=== PATIENT | female | born 1965 | race Caucasian/White ===

== ENCOUNTER 2019-12-08 09:39 | Outpatient (CLI) | payer OTHER, SELFPAY ==
--- NOTE | ~2019-12-08 | XR_ITS ---
XR abdomen/kub 1V 12/08/2019 10:00 Indication: Renal stone Procedure: KUB Comparison: 07/31/2019 Findings: There are multiple bilateral renal stones. There are stones in the right renal pelvis. No d efinite ureteral stones are identified. There are pelvic phleboliths. There are tubal ligation clips. Bowel pattern is nonobstructive. Impression: 1: Nonobstructing bilateral nephrolithiasis. Reviewed, dictated and finalized at location A. Impression: 1: Nonobstructing bilateral nephrolithiasis.
== END 2019-12-08 09:40 ==
PROVIDERS: PCP Internal Medicine; Visit Provider Urology
DX: N20.0 Calculus of kidney (principal)
CPT/HCPCS: 74018

== ENCOUNTER 2020-03-11 13:03 | Outpatient (CLI) | payer OTHER, SELFPAY ==
--- NOTE | ~2020-03-11 | XR_ITS ---
XR abdomen/kub 1V 03/11/2020 13:32 Indication: Renal stones Procedure: KUB Comparison: Comparison to multiple prior studies sequentially, with oldest reviewed study dated 11/23. Findings: There are multiple large bilateral renal stones. Bowel gas pattern is nonobstructive. There are surgical clips in the pelvis. There are pelvic phleboliths. Nonobstructive bowel gas pattern. Lo wer lumbar spondylosis. Impression: 1: Large bilateral renal stones. Reviewed, dictated and finalized at location B. Impression: 1: Large bilateral renal stones.
== END 2020-03-11 13:04 ==
PROVIDERS: Visit Provider Urology
DX: N20.0 Calculus of kidney (principal)
CPT/HCPCS: 74018

== ENCOUNTER 2020-06-17 10:41 | Outpatient (CLI) | payer OTHER, SELFPAY ==
--- NOTE | ~2020-06-17 | XR_ITS ---
XR abdomen/kub 1V 06/17/2020 11:09 INDICATION: Renal stones TECHNIQUE: KUB COMPARISON: Comparison to multiple prior studies sequentially, with oldest reviewed study dated 04/14. FINDINGS: Bowel gas pattern is normal. There is no evidence of free air, mass, organomegaly, ascites or obstruction. There are multiple stable large bilateral renal stones, largest lower pole of the le ft kidney measuring up to 3.1 cm craniocaudal. There are pelvic phleboliths. There are surgical clips in the pelvis. The bones appear intact. IMPRESSION: 1.: Stable bilateral nephrolithiasis. Reviewed, dictated and finalized at location B.
== END 2020-06-17 10:42 ==
PROVIDERS: PCP Internal Medicine; Visit Provider Urology
DX: N20.0 Calculus of kidney (principal)
CPT/HCPCS: 74018

== ENCOUNTER 2020-10-19 10:36 | Outpatient (CLI) | payer OTHER, SELFPAY ==
--- NOTE | ~2020-10-19 | XR_ITS ---
EXAMINATION: XR abdomen/kub 1V EXAM DATE: 10/19/2020 11:01 INDICATION: Calculus of kidney . TECHNIQUE: Frontal projection of the upper abdomen, frontal projection lower abdomen/pelvis for inter pretation. Comparison is made to prior examination from 06/17/2020. FINDINGS: Large amount of calcification in right calyces and renal pelvis. Large casting calcificati on in the left inferior moiety. Calcifications in the pelvis are believed to be phleboliths. Nonobstr uctive bowel gas pattern. There are bony degenerative changes. IMPRESSION: Large bilateral nephrolithiasis. 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
== END 2020-10-19 10:37 ==
PROVIDERS: Visit Provider Urology
DX: N20.0 Calculus of kidney (principal)
CPT/HCPCS: 74018

== ENCOUNTER 2021-03-06 17:39 | Outpatient (CLI) | payer OTHER, SELFPAY ==
--- NOTE | ~2021-03-06 | XR_ITS ---
EXAMINATION: XR abdomen/kub 1V DATE: 03/06/2021 18:27 INDICATION: Calculus of kidney. TECHNIQUE: A supine view of the abdomen on 2 radiographs was obtained. COMPARISON: CT abdomen and pelvis 07/04/2015, abdomen radiographs 10/19/2020 FINDINGS: There are no dilated loops of bowel. There are bilateral tubal ligation clips. There are ph leboliths in the pelvis. There are greater than 20 stones in right kidney and right renal pelvis tyrel uring up to 16 mm. There is a 3.8 cm stone in left kidney. IMPRESSION: 1. Stones in the kidneys and right renal pelvis. Reviewed, dictated and finalized at location A.
== END 2021-03-06 17:40 ==
PROVIDERS: Visit Provider Urology
DX: N20.0 Calculus of kidney (principal)
CPT/HCPCS: 74018

== ENCOUNTER 2021-04-01 10:13 | Outpatient (CLI) | payer OTHER, SELFPAY ==
--- NOTE | ~2021-04-01 | CT_ITS ---
EXAMINATION: CT abdomen pelvis wo con DATE: 04/01/2021 10:41 INDICATION: Renal stone TECHNIQUE: Computed tomography (CT) of the abdomen and pelvis was performed without intravenous contr ast. The dose-length product was 1369.94 mGy-cm. Automated exposure control and iterative reconstruct ion technique were employed. COMPARISON: CT dated 07/04/2015. FINDINGS: Lung bases are unremarkable. Heart size normal. No significant pleural or pericardial effus ion. There are in numerable bilateral renal stones. There are multiple stones in the right renal pelv is near the UPJ. No significant hydronephrosis. The liver, spleen, pancreas, are unremarkable. There are small nodules in both adrenal glands measuri ng up to 11 mm in the left adrenal gland, likely benign adenomas. Gallbladder is present. Nonobstruct endy bowel gas pattern. Colonic diverticulosis without evidence for diverticulitis. Mild lumbar spondy losis. IMPRESSION: 1. Nonobstructing bilateral nephrolithiasis. Multiple stones identified in the right renal collecting system without significant hydronephrosis. Reviewed, dictated and finalized at location A.
== END 2021-04-01 10:14 | disposition home or self-care (01) ==
LOC: ANHIMG 10:17
PROVIDERS: Visit Provider Urology
DX: N20.0 Calculus of kidney (principal)
CPT/HCPCS: 74176

== ENCOUNTER 2021-09-07 15:25 | Outpatient (CLI) | payer OTHER, SELFPAY ==
--- NOTE | ~2021-09-07 | CT_ITS ---
EXAMINATION: CT abdomen pelvis wo con DATE: 09/07/2021 15:43 INDICATION: Calculus of kidney. TECHNIQUE: Computed tomography (CT) of the abdomen and pelvis was performed without intravenous contr ast. Automated exposure control and iterative reconstruction technique were employed. The dose-length product was 1217.86 mGy-cm. COMPARISON: CT abdomen and pelvis 04/01/2021 FINDINGS: The visualized portions of the lung bases are clear without pneumonia or pleural effusion. The heart size is normal. There are coronary artery calcifications. No pericardial effusion. There is diffuse hepatic steatosis. The gallbladder is contracted. The spleen, pancreas, and right adrenal gl and are normal. There is a 12 mm mass in left adrenal gland measuring low-attenuation, consistent wit h an adenoma. There are 5 stones in right kidney measuring up to 17 mm. There are 3 mm and 4 mm stone s in left kidney. Pelvic floor relaxation is noted. There are bilateral tubal ligation clips. There i s diverticulosis of the colon without evidence of diverticulitis. There are no dilated loops of bowel . The appendix is normal. There are no pathologically enlarged lymph nodes. There is no free intraper itoneal fluid. There is moderate thoracolumbar spondylosis. IMPRESSION: 1. Bilateral nonobstructing kidney stones. Reviewed, dictated and finalized at location B. 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
== END 2021-09-07 15:26 ==
PROVIDERS: Visit Provider Urology
DX: N20.0 Calculus of kidney (principal)
CPT/HCPCS: 74176

== ENCOUNTER 2022-08-01 10:43 | Outpatient (CLI) | payer OTHER, SELFPAY ==
--- NOTE | ~2022-08-01 | US_ITS ---
EXAMINATION: US renal BI DATE: 08/01/2022 11:00 INDICATION: Calculus of kidney TECHNIQUE: Multiple grayscale and Doppler ultrasound images of the kidneys were obtained. COMPARISON: 09/07/2021 FINDINGS: The right kidney measures 11.9 x 6.3 x 7.1 cm. The left kidney measures 14.6 x 6.4 x 7.5 cm. The kidn eys demonstrate normal parenchymal echogenicity. Multiple echogenic foci in the right lower pole tyrel uring 1.7 and 2.1 cm respectively. Echogenic focus in the left inferior renal pole measuring 1.5 cm. Multiple additional smaller bilateral renal calculi seen in the prior CT are not visualized sonograph ically. There is no hydronephrosis. The bladder is incompletely filled. IMPRESSION: Bilateral nephrolithiasis. Reviewed, dictated and finalized at location K. CE LIAISON IMPRESSION: Bilateral nephrolithiasis.
--- NOTE | ~2022-08-01 | XR_ITS ---
EXAM: XR abdomen/kub 1V DATE: 08/01/2022 11:06 HISTORY: Calculus of kidney follow up . COMPARISON: 03/06/2021, renal ultrasound 08/01/2022, CT abdomen and pelvis 09/07/2021. FINDINGS: Clear lung bases. Enlarged liver. Normal bowel gas pattern. No organomegaly. Multiple righ t lower pole calcifications regional to 1.6 cm. Pelvic phleboliths. Tubal ligation clips. Degenerativ e changes in the spine and hips. IMPRESSION: Hepatomegaly. Right nephrolithiasis. Known left kidney stones are poorly visualized radio graphically. Reviewed, dictated and finalized at location K. RIOR WIRER IMPRESSION: Hepatomegaly. Right nephrolithiasis. Known left kidney stones are p oorly visualized radiographically.
== END 2022-08-01 10:44 ==
PROVIDERS: PCP Hospitalist; Visit Provider Urology
DX: N20.0 Calculus of kidney (principal); R16.0 Hepatomegaly, not elsewhere classified
CPT/HCPCS: 74018; 76775

== ENCOUNTER 2022-11-08 15:20 | Emergency (ER) | payer OTHER, SELFPAY ==
--- NOTE | 2022-11-08 15:25 | ED.URI ---
HPI - URI/Sore Throat General Chief Complaint: Upper Respiratory Infection Stated Complaint: DIZZY/NAUSA/CHILLS/BODY ACHES Time Seen by Provider: 11/08/22 15:31 Source: patient and RN notes reviewed Mode of arrival: ambulatory Limitations: no limitations History of Present Illness HPI Narrative: 57-year-old female presents with concern for body aches, headache, nausea without vomiting, dizziness started yesterday. She reports exposure to COVID at work and her [id number] has influenza. She reports she is not drinking as much as she should because of nausea. She reports taking Tylenol. She denies any severe headache, weakness in any extremity. MD elicited complaint: other (Body aches, headache) Related Data Home Medications Medication Instructions Recorded Confirmed allopurinol 300 mg tablet mg 11/08/22 amlodipine 10 mg tablet mg 11/08/22 chlorthalidone 25 mg tablet mg 11/08/22 glipizide 5 mg tablet mg 11/08/22 labetalol 200 mg tablet mg 11/08/22 metformin 500 mg tablet,extended mg PO 11/08/22 release 24 hr valsartan 320 mg tablet mg 11/08/22 Allergies Allergy/AdvReac Type Severity Reaction Status Date / Time tramadol AdvReac Intermediate Other Verified 11/08/22 15:27 Contrast Media Allergy Severe HIVES Uncoded 11/08/22 15:27 Review of Systems Review of Systems: CONSTITUTIONAL: Reports malaise, chills low-grade fever. EYES: Denies visual changes, redness, or discharge. ENT: Denies rhinorrhea, congestion, sinus pain, otalgia and sore throat. CARDIOVASCULAR: Denies chest pain, palpitations, or edema. RESPIRATORY: Denies cough. Denies dyspnea. GASTROINTESTINAL: Denies abdominal pain,vomiting, diarrhea. Reports nausea SKIN: Denies rash or itching. MUSCULOSKELETAL: Reports myalgia. NEUROLOGIC: Reports headache and dizziness. All systems reviewed & are unremarkable except as noted in HPI and below PMFSH Comments At time of signature, agree with nursing past medical, surgical, social and family history. There is no relevant family history pertinent to the presenting complaint Exam Narrative: GENERAL: Nontoxic-appearing and in no acute distress. HEAD: Normocephalic EYES: PERRLA, conjunctivae clear ENT: Nares clear, no discharge. Mucous membranes moist. TM pearly crawford with dull light reflex bilaterally; no tragal tenderness. Oropharynx not erythematous without lesions. Tonsils not enlarged and without exudate, no drooling, no hoarseness, no trismus, uvula midline. NECK: Supple. No lymphadenopathy CHEST: Clear to auscultation, breath sounds equal. No wheezing, rhonchi, rales, or stridor. No respiratory distress, speaks in full sentences. HEART: Regular rate and rhythm. No murmur heard. SKIN: Warm, dry, no rash. NEURO: Alert and oriented x3. No focal deficits, cranial nerves 2-12 grossly intact PSYCH: Normal mood and affect Course Course Emergency Course: Patient is aware of diagnosis, understands and agrees to treatment plan. Anticipatory guidance given. Patient agrees to follow-up as directed and is aware of reasons to seek care at the emergency department. Portions of this record may have been created with voice recognition software Level of Care: Express Care Visit Vital Signs Vital signs: Reviewed. MDM - URI/Sore Throat MDM Narrative Medical decision making narrative: Differential diagnosis considered: Horne virus, strep pharyngitis, allergic rhinitis, upper respiratory tract infection, sinusitis, rhinosinusitis, nasopharyngitis. viral pharyngitis, otitis media, otitis externa, pneumonia, bronchitis, viral cough syndrome, viral syndrome, and influenza. Exam findings show no acute concerns or changes; patient is non-toxic appearing and is in no distress. Patient is appropriate for outpatient treatment and follow-up. Lab Data Attestation: I reviewed the patient's lab results. Critical Care Time Critical Care Time Critical Care Time: No Discharge Plan Discharge Clinical Impression: In
[2022-11-08 15:29] VITALS: BP 133/101; PULSE 95; RESP 18; TEMP 37.3; O2SAT 100
== END 2022-11-08 16:09 | disposition home or self-care (01) ==
PROVIDERS: Emergency Provider Nurse Practitioner
DX: J11.1 Influenza due to unidentified influenza virus with other respiratory manifestations (principal); Z20.822 Contact with and (suspected) exposure to COVID-19; I10 Essential (primary) hypertension; E11.9 Type 2 diabetes mellitus without complications
CPT/HCPCS: 87426; 87804; 99213; C9803; G0463

== ENCOUNTER 2022-11-09 13:45 | Outpatient (CLI) | payer OTHER, SELFPAY ==
--- NOTE | ~2022-11-09 | XR_ITS ---
XR abdomen/kub 1V 11/09/2022 14:24 Indication: Renal stones. Procedure: KUB Comparison: 08/01/2022 Findings: There are stones clustered in the lower pole of the right kidney. There are pelvic phleboli ths. There are clips in the pelvis, consistent with previous tubal ligation. Bowel pattern is nonobst ructive. There is lumbar spondylosis. Impression: 1: Right nephrolithiasis. Reviewed, dictated and finalized at location A. Impression: 1: Right nephrolithiasis.
== END 2022-11-09 13:46 ==
PROVIDERS: PCP Family Medicine; Visit Provider Urology
DX: N20.0 Calculus of kidney (principal)
CPT/HCPCS: 74018

== ENCOUNTER 2024-12-11 14:29 | Outpatient (CLI) | payer OTHER, SELFPAY ==
--- NOTE | ~2024-12-11 | CT_ITS ---
Non-contrast CT scan of the Abdomen and Pelvis Clinical indication: Renal stone Technique: 2.5 mm axial scans were obtained through the abdomen and pelvis without intravenous or or al contrast. Dose reduction technique was used on this scan by utilizing automated exposure control a nd iterative reconstruction technique. The dose-length product (DLP) was 1145.30 mGy-cm. COMPARISON: 09/07/2021 Findings: Images through the lung bases reveal no abnormalities. Nonobstructing right renal stones are present, largest measuring 14 mm. Small nonobstructing renal st ones are present, largest measuring 6 mm. No ureteral stone or hydronephrosis on either side. The liver, spleen, pancreas, gallbladder, and adrenals appear normal. There are atherosclerotic calci fications of the aorta. . There is no evidence of bowel obstruction. Images through the pelvis were performed. There is no evidence of ascites or lymphadenopathy. Urinary bladder unremarkable. No pelvic mass seen. No ascites. Impression: Bilateral nonobstructing renal stones, as detailed above. No ureteral stone or hydronephrosis. Reviewed, dictated and finalized at [facility]. Impression: Bilateral nonobstructing renal stones, as detailed above. No ureteral stone or hydronephrosis.
== END 2024-12-11 14:30 | disposition home or self-care (01) ==
PROVIDERS: PCP Hospitalist; Visit Provider Urology
DX: N20.0 Calculus of kidney (principal)
CPT/HCPCS: 74176

== ENCOUNTER 2025-05-25 12:53 | Outpatient (CLI) | payer OTHER, SELFPAY ==
--- NOTE | ~2025-05-25 | XR_ITS ---
Abdominal radiograph(s) INDICATION: Renal stones COMPARISON: CT 12/11/2024 Abdominal x-ray 11/09/2022 TECHNIQUE: 2 views AP abdomen FINDINGS: Bilateral renal stones, right side up to 9 mm, left side up to 6 mm. No ureteral stones noted. Scattered colonic stool. Small bowel loops not well seen. Hepatomegaly. No abnormal abdominal calcifications. No acute bony abnormality. IMPRESSION: 1. Bilateral nephrolithiasis. Reviewed, dictated and finalized at location R.
--- OUTSIDE RECORDS SUMMARY | 2025-05-25 13:03 | XMS_ITS | Clinical Summary ---
Author Organization [facility] Address [address] [place] [address] Care Team Providers Care Diamond Sawer Name Role Phone Dalton Broderick MD Primary Care Provider [phone] Allergies Active Allergy Reactions Criticality Noted Date Comments Iodine Swelling 10/26/2021 IV Contrast dye. Was able to tolerate with benadryl and steroids the last time Medications metFORMIN 500 MG tablet Take 500 mg by mouth 2 (two) times daily with meals. Active glipiZIDE 5 MG tablet Take 5 mg by mouth every morning before breakfast. Active Albuterol Sulfate (PROAIR HFA IN) Inhale 2 puffs into the lungs as needed. Active amLODIPine 10 MG tablet Take 10 mg by mouth daily. 1 Active Blood Glucose Monitoring Suppl (GLUCOCOM BLOOD GLUCOSE MONITOR) Device Use to check blood glucose 1 time daily. Dx: E11.69 Non Insulin Dependent 1 Active Glucose Blood ([employer] BLOOD GLUCOSE TEST) test strip Use to check blood glucose 1 time daily. Dx: E11.69 Non Insulin Dependent 1 Active Lancets 30G Misc Use to check blood glucose 1 time daily. 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 Active allopurinol 300 MG tablet Take 300 mg by mouth daily. 1 Active Active Problems Problem Noted Date Diagnosed Date Right kidney stone 11/02/2021 Family History Medical History Relation Comments Heart Father had pacemaker an d defibrillator Hypertension Father Stroke Father Heart Mother Hypertension Mother tia Mother Heart Sister 1 pacemaker and de fibrillator mini strokes Sister 1 Heart Sister 2 Relation Status Comments Father Mother Alive Sister 1 Alive Sister 2 Alive Social History Tobacco Use Types Packs/Day Years Used Date Smoking Tobacco: Former Cigarettes Q uit: 10/26/2014 Smokeless Tobacco: Never Alcohol Use Standard Drinks/Week Comments Not Currently 0 (1 standard drink = 0.6 oz pur e alcohol) twice a year Comments No Sex and Gender Information Value Date Recorded Sex Assigned at Not on file Legal Sex 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 Gender Identity Not on file Sexual Orientation Not on file Last Filed Vital Signs Vital Sign Reading Time Taken Comments Blood Pressure 124/73 11/02/2021 3:45 PM SALES ASSOCIATE KEY HOLDER Pulse 62 11/02/2021 3:45 PM SALES 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 KEY HOLDER Temperature 36.9 C (98.4 F) 11/02/2021 3:45 PM SALES ASSOCIATE KEY HOLDER Respiratory Rate 16 11/02/2021 3:45 PM SALES 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 KEY HOLDER Oxygen Saturation 96% 11/02/2021 3:45 PM SALES ASSOCIATE KEY HOLDER Inhaled Oxygen Concentration - - Weight 129.5 kg (285 lb 7.9 oz) 022 11:10 AM SALES ASSOCIATE KEY HOLDER Height 172.7 cm (5' 8) 10/26/2021 9:32 AM SALES ASSOCIATE KEY HOLDER Body Mass Index 43.41 10/26/2021 9:32 AM SALES ASSOCIATE KEY HOLDER Plan of Treatment Health Maintenance Due Date Last Done Comments Cervical Cancer Screening Pa p Smear (Age 30 to 64) Every 3 Years 1963 Colorectal Cancer Screening Colonoscopy (10 Years) 1963 Annual Physical 1966 Hepatitis C 1981 Cervical Cancer Screening Pa p with HPV Testing (Age 30 to 64) Every 5 Years 1993 Cervical Cancer Screening wi th HPV 1993 Mammogram Screening 2003 Pneumococcal Vaccine: 50+ Years (1 of 1 - PCV) 2013 Zoster Vaccines (1 of 2) 2013 DTaP, Tdap and Td Vaccines ( 2 - Td or Tdap) 04/22/2022 04/22/2012 COVID-19 Vaccine (3 - 2024-2 6 season) 2025 10/26/2020, 09/27/2020 RSV Immunization or 60+ Years (1 - 1-dose 75+ series) 2038 Meningococcal B Vaccine Aged Out No l onger eligible based on patient's age to complete this topic Meningococcal Vaccine Aged Out No humza jesse eligible based on patient's age to complete this topic RSV Immunizations Under 20 Months Aged Out No longer eligible b ased on patient's age to complete this topic Medical Devices Implanted Type Area Ip Litigation Associate Device Identifier Shelf Expiration Date Model / Serial / Lot Stent Ureteral Anchor Sci Contour 6fr X 24cm - [id number] Implanted:Qty: 1 on 11/02/2021 by Thony Ochoa MD at [facility] [place] Stent Right: Ureter [employer] 08/15/2024 [id number] / / [id number] Insurance CIG Care Teams Diamond Sawer Relationship Specialty Start Date End Date Dalton Broderick MD [address] [place] [address] PCP - General FAMILY PRACTICE 11/02/21
--- OUTSIDE RECORDS SUMMARY | 2025-05-25 13:03 | XMS_ITS | Clinical Summary ---
Author Organization [facility] [place] [address] Address [address] [place] [address] Care Team Providers Care Yarn Examiner Skeins Name Role Phone Dalton Pathak MD Primary Care Provider [phone] Thony Ochoa MD Unavailable [phone] Allergies Active Allergy Reactions Criticality Noted Date Comments Iodinated Contrast Media Hives Medium 02/17/2021 Iodine Swelling Medium 10/26/2021 IV Contrast dye. Was able to tolerate with benadryl and steroids the last time Spironolactone Nausea only Low 02/03/2025 Lqkoylm-Uqn-Lsq Reductase Inhibitors Other (See comments) Low 10/11/2023 GI upset w/ simvastatin, atorvastatin, and rosuvastatin Tramadol Hallucinations Medium 02/25/2025 Hydrocodone-Acetaminop hen Hallucinations Medium 06/10/2024 itching Medications allopurinoL (ZYLOPRIM) 300 mg tablet Take 1 tablet (300 mg total) by mouth daily 01/17/20 21 Active blood-glucose meter (OneTouch Verio IQ Meter) miscIndications: Type 2 diabetes mellitus with diabetic nephropathy, without long-term current use of insulin (HCC) Use to check blood glucose 1 time daily. Dx: E11.69 Non Insulin Dependent 1 each 03/05/20 23 Active lancets 30 gauge miscIndications: Type 2 diabetes mellitus with diabetic nephropathy, without long-term current use of insulin (HCC) Use to check blood glucose 1 time daily. Dx: E11.69 Non Insulin Dependent 100 each 3 03/05/20 23 Active blood-glucose sensor deviceIndication s:Type 2 diabetes mellitus with diabetic nephropathy, without long-term current use of insulin ([facility]) 1 Application every 14 (fourteen) days 9 each 3 03/06/20 23 Active metFORMIN XR (GLUCOPHAGE XR) 500 mg 24 hr tabletIndication s:Type 2 diabetes mellitus with diabetic nephropathy, without long-term current use of insulin ([facility]) Take 2 tablets (1,000 mg total) by mouth 2 (two) times a day with meals Take 2 tablets with breakfast; take additional dose with evening meal if glucose levels elevated 360 tablet 4 11/12/19 25 026 Active lancets misc 1 each by other route as directed 100 each 3 11/12/19 25 Active ergocalciferol (VITAMIN D) 50,000 unit capsuleIndicatio ns:Vitamin D deficiency Take 1 capsule (50,000 Units total) by mouth once a week 12 capsule 4 11/21/19 25 026 Active glipiZIDE (GLUCOTROL) 5 mg tabletIndication s:Type 2 diabetes mellitus with diabetic nephropathy, without long-term current use of insulin ([facility]) Take 1 tablet (5 mg total) by mouth 2 (two) times a day before breakfast and lunch 02/19/20 25 Active Narcan 4 mg/actuation spray,non-aeroso l Administer 1 spray into affected nostril(s) as needed 0 02/26/20 25 Active cyclobenzaprine (FLEXERIL) 5 mg tablet Take 1 tablet (5 mg total) by mouth 3 (three) times a day as needed for muscle spasms 30 tablet 03/03/20 25 Active oxyCODONE (ROXICODONE) 5 mg immediate release tablet Take by mouth every 6 (six) hours as needed for pain 03/02/20 25 Active blood glucose diagnostic (glucose blood) stripIndications :Type 2 diabetes mellitus with diabetic nephropathy, without long-term current use of insulin ([facility]) One-Touch test strips 100 each 11 04/06/20 25 026 Active amLODIPine (NORVASC) 10 mg tabletIndication s:Essential hypertension Take 1 tablet (10 mg total) by mouth daily 05/03/20 25 Active labetaloL (NORMODYNE,TRAND ATE) 200 mg tabletIndication s:Essential hypertension Take 1 tablet (200 mg total) by mouth 2 (two) times a day 05/03/20 25 026 Active valsartan (DIOVAN) 160 mg tabletIndication s:Essential hypertension Take 1 tablet (160 mg total) by mouth daily 05/03/20 25 026 Active amLODIPine (NORVASC) 10 mg tabletIndication s:Morbid obesity with BMI of 40.0-44.9, adult (HCC) Take 1 tablet (10 mg total) by mouth daily 90 tablet 6 10/29/19 25 025 Discontinu ed(Reorder ) labetaloL (NORMODYNE,TRAND ATE) 200 mg tabletIndication s:Morbid obesity with BMI of 40.0-44.9, adult (HCC) Take 1 tablet (200 mg total) by mouth 2 (two) times a day 180 tablet 6 10/29/19 25 025 Discontinu ed(Reorder ) valsartan (DIOVAN) 160 mg tabletIndication s:Morbid obesity with BMI of 40.0-44.9, adult (HCC) Take 1 tablet (160 mg total) by mouth daily 90 tablet 6 10/29/19 25 025 Discontinu ed(Reorder ) clindamycin (CLEOCIN) 300 mg capsuleIndicatio ns:Dental infection Take 1 capsule (300 mg total) by mouth 4 (four) times a day for 10 days 40 capsule 05/03/20 25 025 fluconazole (DIFLUCAN) 150 mg tablet Take 1 tablet (150 mg total) by mouth once for 1 dose Take one tab now. Repeat in 7 days if symptoms persist. 2 tablet 05/03/20 25 025 Active Problems Problem Noted Date Diagnosed Date Anxiety 02/03/2025 Assessment & Plan (02/03/2025 7:29 PM CDT): Meningioma 11/11/2024 Assessment & Plan (02/18/2025 2:38 PM CDT): Continues monitoring with Neurosurgery. Assessment & Plan (02/03/2025 7:29 PM CDT): Assessment & Plan (11/11/2024 12:31 PM CDT): Urgent referral to neurosurgery. Discussed typically benign nature of meningiomas. When symptomatic may require intervention. She is agreeable to follow up with neurosurgeon. We appreciate their expertise. Statin intolerance 10/11/2023 Nephrolithiasis 05/16/2021 Assessment & Plan (02/18/2025 2:38 PM CDT): Following with urology. Lithotripsy scheduled. Diabetic polyneuropathy asso ciated with type 2 diabetes mellitus 02/17/2021 Assessment & Plan (11/11/2024 12:31 PM CDT): Discussed the importance of getting blood sugar under control. Recent increase in glipizide and metformin. Will have short-term follow-up in 3 months. May consider additional agent. She is in agreement with plan states understanding. Assessment & Plan (05/03/2025 11:49 AM CDT): >>ASSESSMENT AND PLAN FOR DIABETIC POLYNEUROPATHY ASSOCIATED WITH TYPE 2 DIABETES MELLITUS (HCC) WRITTEN ON 02/17/2021 3:03 PM BY DALTON PATHAK MD Patient reports occasional numbness and tingling in bilateral feet, decreased sensation during that exam Continue to monitor, symptoms do not significantly bother patient and no need to start medication at this time Will continue with tight blood sugar control in order to reduce risk of progression >>ASSESSMENT AND PLAN FOR DIABETIC NEPHROPATHY ASSOCIATED WITH TYPE 2 DIABETES MELLITUS (HCC) WRITTEN ON 02/17/2021 3:02 PM BY DALTON PATHAK MD Positive microalbumin urine today, patient also known to have kidney stones Will recheck a future date, and we will check CMP today to determine GFR Hyperlipidemia associated with type 2 diabetes jose temple 05/13/2019 Assessment & Plan (05/03/2025 12:34 PM CDT): Chronic, not well controlled Does not tolerate statins Follows with cardiology Assessment & Plan (05/01/2024 11:31 AM CDT): Not well controlled Does not tolerate statins Cardiology working to get Zetia approved Has not started fenofibrate; discussed need to start Assessment & Plan (04/28/2021 3:58 PM CDT): Stable, no current anti cholesterol medicine Will continue to monitor likely need to start statin therapy Class 2 severe obesity due t o excess calories with serious comorbidity and body mass index (BMI) of 38.0 to 38.9 in adult 02/07/2018 Assessment & Plan (05/03/2025 12:35 PM CDT): BMI 38.47 Has been working to lose weight Goal is 250 pounds; currently at 253 Assessment & Plan (02/03/2025 7:29 PM CDT): BMI 40.61. Discussed healthy diet, routine exercise and encouraged further weight loss. Patient reports a weight loss of 40 lb. We discussed that it could be related to uncontrolled diabetes. Assessment & Plan (05/01/2024 11:33 AM CDT): Not well controlled Has lost 12 pounds due to stress Likes to eat carbs Encouraged to monitor portion control and limit carb intake Assessment & Plan (04/28/2021 3:58 PM CDT): Not well controlled, continue to encourage portion control and attempts to find time to exercise 3-5 times per week Assessment & Plan (02/17/2021 3:00 PM CDT): Stable, improving Patient has been working on weight loss, has lost approximately 16 lb over past month Encouraged patient to continue with appropriate dietary portion control new line limit carbohydrate intake for controlling blood sugars Will continue to follow patient, referral to diabetic Education and Nutrition Services for further assistance with weight loss goals Type 2 diabetes mellitus wit h diabetic nephropathy, without long-term current use of insulin 08/12/2017 Assessment & Plan (05/03/2025 12:33 PM CDT): Most recent A1c 8.1 Continue Metformin 1000 mg BID and Glipizide 10 mg BID Non-adherence due to dietary challenges, stress-related eating, and memory issues from meningioma. Blood sugar 218-345 mg/dL. 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 Non-adherence due to dietary challenges, stress-related eating, and memory issues from meningioma. Blood sugar 218-345 mg/dL. Declined insulin therapy. - Increase glipizide to 5 mg twice daily with meals. - Encourage dietary modifications, reduce pasta and soda, consider alternative sweeteners. - Discuss importance of taking glipizide with food to prevent hypoglycemia. - Reassess A1c in three months. Assessment & Plan (02/03/2025 2:48 PM CDT): Assessment & Plan (11/11/2024 12:32 PM CDT): A1c 10.2%. Above goal. Recent uptitration and glipizide and metformin. Encouraged compliance. Encouraged monitoring blood glucose at home. Will send in glucometer and test strips. Short-term follow-up in 3 months. Sooner for any concerns. Assessment & Plan (05/01/2024 11:30 AM CDT): Not well controlled A1c 10.7 Glipizide 10 mg BID, Metformin 1000 mg daily Has not started Mounjaro-phone number given to call and get set up with mail order program Assessment & Plan (03/05/2023 12:49 PM CDT): Patient's A1c on 02/06 was 11%, with is up from 9.2% in January of 2022. Patient would benefit from Mirametrix glucose monitoring system as her blood sugars have been uncontrolled Continue Glipizide 5 mg daily and Metformin 1000 mg daily Start Mounjaro 2.5 mg SubQ once weekly Follow up in 1 month Assessment & Plan (04/28/2021 4:00 PM CDT): Improving, last A1c was 9.2, patient has been working on diet and decreasing carbohydrates; today A1c has come down to 7.6 Continue metformin 1000 mg b.i.d., glipizide 5 mg daily; today will start semaglutide 3 mg daily Assessment & Plan (02/17/2021 2:59 PM CDT): Not well controlled, improving Last A1c 10.3, today is 9.2 Patient has continued to have good control of blood sugar 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 Patient referred to diabetic education to ensure patient continues with adequate diet Patient to start glipizide 5 mg daily to help with blood sugar control through the day Patient given signs and symptoms of hypoglycemia, and need to ensure carbohydrate intake while taking glipizide Clinic and lipid today and noted elevated total and LDL cholesterol; patient given dietary and activity modifications to help improve cholesterol levels; patient to talk with working manager regarding starting statin therapy Essential hypertension 11/16/2013 Assessment & Plan (05/03/2025 12:35 PM CDT): Chronic, stable BP at goal at visit; 138/78 Follows with cardiology Continue Valsartan 160 mg daily, Labetalol 200 mg BID, Amlodipine 10 mg daily Orders: amLODIPine (NORVASC) 10 mg tablet; Take 1 tablet (10 mg total) by mouth daily labetaloL (NORMODYNE,TRANDATE) 200 mg tablet; Take 1 tablet (200 mg total) by mouth 2 (two) times a day valsartan (DIOVAN) 160 mg tablet; Take 1 tablet (160 mg total) by mouth daily Assessment & Plan (02/03/2025 7:29 PM CDT): Assessment & Plan (05/01/2024 11:32 AM CDT): Chronic, stable BP 130/80 at visit Continue Amlodipine 10 mg daily, Chlorthalidone 25 mg daily, labetalol 200 mg BID and Valsartan 160 mg daily Assessment & Plan (04/28/2021 3:57 PM CDT): Stable, well controlled Blood pressure at target today Continue amlodipine 10 mg, labetalol 200 mg, losartan 100 mg Assessment & Plan (02/17/2021 2:59 PM CDT): Stable, well controlled Patient on multiple medications, managed by cardiology Will continue to follow with patient Resolved Problems Problem Noted Date Diagnosed Date Resolved Date Sebaceous cyst of right axilla 02/03/2025 05/03/2025 Assessment & Plan (02/18/2025 2:29 PM CDT): Improved. Due to repeated recurrence of inflammation would recommend follow-up with plastic surgeon for discussion of excision. She is agreeable. Referral placed. Assessment & Plan (02/03/2025 7:29 PM CDT): Calculus of kidney 12/18/2024 Renal calculus 06/20/2021 05/03/2025 Nephrolithiasis, uric acid 02/17/2021 0 05/03/2025 Assessment & Plan (02/17/2021 3:02 PM CDT): Patient on allopurinol for nephrolithiasis, follows with Urology for management of stones Dyslipidemia 11/29/2014 05/13/2019 Overview (11/30/2016): Atherogenic dyslipidemia Morbid obesity 11/16/2013 02/07/2018 Overview (11/30/2016): MORBID OBESITY Impaired glucose tolerance 11/16/2013 0 05/13/2019 Overview (11/30/2016): Glucose intolerance (impaired glucose tolerance) Encounters Date Type Department Care Team Description 05/06/2025 Results Follow-Up [facility] [address] [place] [address] Dalton Pathak MD Albumin Creatinine Ratio, Urine, Hemoglobin A1c, Comprehensive metabolic panel, Additional followed-up results: 4 05/03/2025 11:58 AM CDT - 05/03/2025 11:59 PM CDT Hospital Encounter [facility] [address] [place] [address] Type 2 diabetes mellitus with diabetic nephropathy, without long-term current use of insulin (HCC) Discharge Disposition: Discharge to home or self care 05/03/2025 11:30 AM CDT Office Visit [facility] [address] [address] Sarah Jeter NP Annual physical exam (Primary Dx); Dental infection; Essential hypertension; Class 2 severe obesity due to excess calories with serious comorbidity and body mass index (BMI) of 38.0 to 38.9 in adult ([facility]) 04/30/2025 8:40 AM CDT Lab [facility] [address] [place] [id number] Type 2 diabetes mellitus with diabetic nephropathy, without long-term current use of insulin ([facility]) 04/23/2025 Telephone [facility] [address] [address] Dalton Pathak MD 04/15/2025 1:51 PM CDT - 04/15/2025 11:59 PM CDT Hospital Encounter [facility] [address] [place] [address] Calculus of kidney Discharge Disposition: Discharge to home or self care 04/08/2025 8:50 AM CDT - 04/08/2025 11:00 AM CDT Surgery [facility] [address] [place] [address] Thony Ochoa MD Right ureteroscopy, laser lithotripsy with right stent exchange and Clear Millie, retrograde pyelogram, stone extraction 04/08/2025 8:32 AM CDT Anesthesia Event [facility] [address] [place] [address] Hector Franz DO Kory, Christopher James, MD 04/08/2025 7:22 AM CDT - 04/08/2025 12:57 PM CDT Hospital Encounter [facility] [address] [place] [address] Thony Ochoa MD Calculus of kidney Discharge Disposition: Discharge to home or self care 04/06/2025 Telephone [facility] [address] [phone] Dalton Pathak MD Med Refill; One Touch Test strips 03/09/2025 11:34 AM CDT - 03/09/2025 11:59 PM CDT Hospital Encounter [facility] [address] [place] [address] Calculus of kidney Discharge Disposition: Discharge to home or self care 03/03/2025 11:30 AM CDT Office Visit [facility] [address] [phone] Dalton Pathak MD Type 2 diabetes mellitus with diabetic nephropathy, without long-term current use of insulin (HCC) (Primary Dx); Piriformis syndrome, right 03/03/2025 Nurse Triage [facility] [address] [phone] Dalton Pathak MD 02/25/2025 8:38 AM CDT Anesthesia Event [facility] [address] [place] [address] Hector Franz DO 02/25/2025 8:20 AM CDT - 02/25/2025 9:40 AM CDT Surgery [facility] [address] [place] [address] Thony Ochoa MD Right renal LITHOTRIPSY EXTRACORPOREAL SHOCK WAVE - ESWL, cystoscopy with right stent placement 02/25/2025 6:30 AM CDT - 02/25/2025 12:10 PM CDT Hospital Encounter [facility] [address] [place] [address] Thony Ochoa MD Discharge Disposition: Discharge to home or self care from Last 3 Months Immunizations Immunization Administration Dates Next Due Hep B Vaccine 10/08/2013,04/22/2012 Influenza, Unspecified 04/29/2024(Deferr ed: Patient Refused),05/26/2023,05/26/2022,05/26/20 21,08/26/2020(Deferred: Patient Refused),08/26/2019(Deferred: Patient Refused) Moderna SARS-CoV-2 Monovalen t Vaccination (12+ YRS) 10/26/2020,09/27/2020 Tdap 04/22/2012 Surgical History Surgery Date Site/Laterality Comments TUBAL LIGATION 1995 OTHER SURGICAL HISTORY Kidney Stones, stents, DR. Max; surgeries x 8: KIDNEY STONE SURGERY 08/26/1995 - 08/25/1996 CARPAL TUNNEL RELEASE Right NEPHROURETERAL STENT PLACEMENT NEW ACCESS RIGHT 05/16/2021 Right URETERAL STENT PLACEMENT VIA EXISTING TRACT RIGHT 05/17/2021 Right NEPHROURETERAL STENT PLACEMENT NEW ACCESS LEFT 06/20/2021 Left URETERAL STENT PLACEMENT VIA EXISTING TRACT LEFT 06/21/2021 Left KIDNEY STONE SURGERY 02/25/2025 Medical History Medical History Date Comments Hypertension 2010 Smoking former PONV (postoperative nausea and vomiting) Nephrolithiasis DM (diabetes mellitus) Type 2 diabetes mellitus Brain tumor (benign) Gout Sebaceous cyst of right axilla 02/03/2025 Family History Medical History Relation Name Comments Hypertension Brother Bridger Skin cancer Brother Bridger Heart disease Father . Yemi barron Hypertension Father . Yemi barron Other Father . Yemi barron HTN, D M; /Cardioversion; Stroke Father . Yemi barron Heart disease Mother Jada barron Hyperlipidemia Mother Jada barron High Cholest lena; Hypertension Mother Jada barron Other Mother Jada barron HTN, CAD, sten t age 59 yo; /Bowel and gallbladder problems; Diabetes Sister 2 Ana Hypertension Sister 2 Ana Relation Name Status Comments Brothzoraida Sparks Alive Father . Yemi barron Mother Jada barron Alive Sister 1 Alive Sister 2 Ana Alive Social History Tobacco Use Types Packs/Day Years Used Date Smoking Tobacco: Former Cigarettes Q uit: 08/12/2014 Smokeless Tobacco: Never Tobacco Cessation:Counseling Given: Not Answered Alcohol Use Standard Drinks/Week Comments Yes 0 (1 standard drink = 0.6 oz pur e alcohol) PHQ-2 Answer Date Recorded PHQ-2 Total Score (If total score is 3 or more points, staff should administer the PHQ-9) 0 05/03/2025 AUDIT-C Answer Date Recorded Q1: How often do you have a drink containing alc ohol? Monthly or less 04/08/2025 Q2: How many drinks containi ng alcohol do you have on a typical day when you are drinking? 1 or 2 04/08/2025 Q3: How often do you have si x or more drinks on one occasion? Never 04/08/2025 Personal Safety Answer Date Recorded Have you ever been in or are you currently in a harmful physical or emotional relationship or is someone making you feel afraid or unsafe? 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 Gender Identity Not on file Sexual Orientation Not on file Obstetrics History Para Term AB IAB SAB Ectopic Multiple Livin g Live Births 2 2 2 Date Outcome GA Total Labor Labor/2nd/3rd Weight Sex Type Anes PTL Bridget A1 A5 Name Clin Term Term Last Filed Vital Signs Vital Sign Reading Time Taken Comments Blood Pressure 138/78 05/03/2025 11:42 AM CDT Pulse 74 05/03/2025 11:42 AM CDT Temperature 36.6 C (97.8 F) 05/03/2025 11:42 AM CDT Respiratory Rate 18 05/03/2025 11:42 AM CDT Oxygen Saturation 98% 05/03/2025 11:42 AM CDT Inhaled Oxygen Concentration - - Weight 114.8 kg (253 lb) 05/03/2025 11:42 AM CDT Height 172.7 cm (5' 8) 05/03/2025 11:42 AM CDT Body Mass Index 38.47 05/03/2025 11:42 AM CDT Plan of Treatment Health Maintenance Due Date Last Done Comments Colon Cancer Screening-DNA Stool 1963 Zoster Vaccine (1 of 2) 2013 Cervical Cancer Screening 09/05/2016 09/05/2015 DTaP/Tdap/Td Vaccine (2 - Td or Tdap) 04/22/2022 04/22/2012 Covid-19 Vaccine (3 - season) 2025 10/26/2020, 09/27/2020 Influenza Vaccine (#1) 2025 , 05/26/2022, 05/26/2021 Dilated Eye Exam 07/06/2025 07/06/2023, , 01/12/2021 Breast Cancer Screening-Mammogram 07/18/2025 07/18/2024, 03/11/2021 Hemoglobin A1C 10/28/2025 04/30/2025, 06/2 01/2025, 03/30/2024, Additional history exists Pneumococcal vaccine <65 (1 of 2 - PCV) 01/19/2026 Postponed from 1982 (Patient declined, but will receive in the future) Lipid Panel 04/30/2026 04/30/2025, 0 12/2023, 11/02/2023, Additional history exists eGFR 04/30/2026 04/30/2025, 0 04/2024, 04/11/2023, Additional history exists Albumin Creatinine Ratio, Urine 05/03/2026 05/03/2025, 11/02/2023, 05/25/2022 Depression Screening 05/03/2026 05/03/2025, 11/11/2024, 05/01/2024, Additional history exists Foot Exam 05/03/2026 05/03/2025, 03/2025, 10/29/2023, Additional history exists Regular Well Visit/Exam 18-64 05/03/2026 05/03/2025, 05/01/2024, 10/29/2023 Hepatitis B Screening Completed 10/08/2013, 012 Hepatitis C Screening Completed 02/17/2021 Medical Devices Implanted Type Area Wastewater Manager Device Identifier Shelf Expiration Date Model / Serial / Lot [employer] Tena 180-222 Contour 6fr 24cm Large Inner Lumen Low Profile Bladder Kevin Taper Latex Free - [id number] Implanted:Qty: 1 on 06/23/2021 by Thony Ochoa MD at [facility] Stent Right: Ureter [employer] Tena [id number] 02/20/2024 180-222 / / [id number] [employer] [id number] Amplatz Rb 8.5fr 28cm 6 Sideport Introducer Catheter String - [id number] Implanted:Qty: 1 on 05/17/[address] [facility] [employer] 03/15/2024 [id number] / / [id number] [employer] [id number] Amplatz Rb 8.5fr 28cm 6 Sideport Introducer Catheter String - [id number] Implanted:Qty: 1 on 06/21/[address] [facility] [employer] 05/16/2024 [id number] / / [id number] [employer] Tena Stent Ureteral Set Double Pigtail Tapered Tip Contour [id number] Hydroplus Coated [id number] - [id number] Implanted:Qty: 1 on 04/08/2025 by Thony Ochoa MD at [facility] Right: Ureter [employer] Tena 10/27/2027 [id number] / / [id number] Explanted Type Area Wastewater Manager Device Identifier Shelf Expiration Date Model / Serial / Lot [employer] Tena Stent Ureteral Set Double Pigtail Tapered Tip Contour [id number] Hydroplus Coated [id number] - [id number] Implanted:Qty: 1 on 02/25/2025 by Thony Ochoa MD at [facility] Explanted:Qty: 1 on 04/08/2025 by Thony Ochoa MD at [facility] Right: Ureter [employer] Tena 07/16/2027 [id number] / / [id number] Procedures Procedure Name Priority Date/Time Associated Diagnosis Comments ALBUMIN CREATININE RATIO, URINE Routine 05/03/2025 11:58 AM CDT Type 2 diabetes mellitus with diabetic nephropathy, without long-term current use of insulin ([facility]) EGFR Routine 04/30/2025 8:46 AM CDT Type 2 diabetes mellitus with diabetic nephropathy, without long-term current use of insulin ([facility]) DIFFERENTIAL AUTO Routine 04/30/2025 8:4 6 AM CDT Type 2 diabetes mellitus with diabetic nephropathy, without long-term current use of insulin ([facility]) LIPID PANEL Routine 04/30/2025 8:46 AM CDT Type 2 diabetes mellitus with diabetic nephropathy, without long-term current use of insulin ([facility]) CBC WITH AUTO DIFFERENTIAL Routine 04/30/2025 8:46 AM CDT Type 2 diabetes mellitus with diabetic nephropathy, without long-term current use of insulin ([facility]) COMPREHENSIVE METABOLIC PANEL Routine 04/30/2025 8:46 AM CDT Type 2 diabetes mellitus with diabetic nephropathy, without long-term current use of insulin ([facility]) HEMOGLOBIN A1C Routine 04/30/2025 8:46 AM CDT Type 2 diabetes mellitus with diabetic nephropathy, without long-term current use of insulin ([facility]) XR KUB Schedule Routine, Read Routine (OP Routine) 04/15/2025 2:08 PM CDT Calculus of kidney SURGICAL PATHOLOGY Routine 04/08/2025 11 :37 AM CDT Calculus of kidney POCT GLUCOSE DEVICE Routine 04/08/2025 1 0:09 AM CDT FL RETRO PYELO (IN OR) IP Routine 04/08/2025 10:05 AM CDT STONE ANALYSIS Routine 04/08/2025 10:04 AM CDT WA AN ELECTIVE SUPRAGLOTTIC AIRWAY Routine 04/08/2025 8:49 AM CDT CYSTOSCOPY HOLMIUM LASER LITHOTRIPSY BLADDER STONE 04/08/2025 8:32 AM CDT Calculus of kidney POCT GLUCOSE DEVICE Routine 04/08/2025 7 :49 AM CDT XR KUB Schedule Routine, Read Routine (OP Routine) 03/09/2025 11:43 AM CDT Calculus of kidney POCT GLUCOSE DEVICE Routine 02/25/2025 9 :45 AM CDT WA AN ELECTIVE SUPRAGLOTTIC AIRWAY Routine 02/25/2025 8:43 AM CDT LITHOTRIPSY EXTRACORPOREAL SHOCK WAVE - ESWL 02/25/2025 8:37 AM CDT Calculus of kidney POCT GLUCOSE DEVICE Routine 02/25/2025 8 :28 AM CDT POCT GLUCOSE DEVICE Routine 02/25/2025 8 :03 AM CDT POTASSIUM, WHOLE BLOOD STAT 02/25/2025 7:47 AM CDT POCT GLUCOSE DEVICE Routine 02/25/2025 7 :28 AM CDT XR ABDOMEN AP 1 VIEW ED Urgent/IP Urgent 02/25/2025 6:59 AM CDT URINALYSIS AND REFLEX TO MICROSCOPIC AND CULTURE STAT 02/25/2025 6:49 AM CDT SCREENING MAMMOGRAM BILATERAL W DANY Schedule Routine, Read Routine (OP Routine) 07/18/2024 9:41 AM LE[facility] Screening mammogram, encounter for DIABETIC EYE EXAM Routine 07/06/2023 HEPATITIS C ANTIBODY Routine 02/17/2021 11:47 AM CDT Establishing care with new doctor, encounter for Need for hepatitis C screening test GENITAL FLUID PAP SMEAR, THIN PREP AND HPV Routine 09/05/2015 6:00 PM LEATHERSMITH from Last 3 Months or Most Recently Relevant to Health Maintenance Results * (ABNORMAL) Albumin Creatinine Ratio, Urine (05/03/2025 11:58 AM CDT) Albumin Ur 81.9 mg/L Comment: Interpretive Data No reference range established. Current interpretive data was last revised 2019. Testing performed by: [address] [address] Creatinine Ur 124.9 mg/dL [facility] ([place]) Comment: Interpretive Data No reference range established. Current interpretive data was last revised 2019. Testing performed by: [address] [address] Albumin Creatinine Ratio, Ur 66(H) 1 - 29 mg/g [facility] ([place]) Comment:Testing performed by : [address] [address] Urine 05/03/2025 11:5 8 AM CDT 05/03/2025 5:50 PM CDT us Dalton Pathak MD LAB URINE ORDERABLES Loree lamas Result [facility] ([place]) 1 [facility] [place] [address] * eGFR (04/30/2025 8:46 AM CDT) eGFR >90 >=60 mL/min/1. 73 m2 Comment: Interpretive Data Reference Interval Normal >/= 90 mL/min/1.73m2 Mildly decreased* 60 - 89 mL/min/1.73m2 Mildly to moderately decreased 45 - 59 mL/min/1.73m2 Moderately to severely decreased 30 - 44 mL/min/1.73m2 Severely decreased 15 - 29 mL/min/1.73m2 Kidney Failure < 15 mL/min/1.73m2 *Relative to young adult level Estimated glomerular filtration rate is determined by the 2020 CKD-EPI equation recommended by the National Kidney Foundation (A Unifying Approach to GFR Estimation: Recommendations of the NKF-ASK Task Force on Reassessing the Inclusion of Race in Diagnosing Kidney Disease, JASN 2020). The CKD-EPI equation should not be used for patients with unstable renal function and has not been validated in children and those over 70. Current interpretive data was last reviewed 2021. Testing performed by: [address] [address] Blood 04/30/2025 8:46 AM CDT 04/30/2025 7:03 PM CDT Dalton Pathak MD LAB BLOOD ORDERABLES Loree lamas Result [facility] Department [place] [address] * (ABNORMAL) Differential, auto (04/30/2025 8:46 AM CDT) Neutrophil abs 6.92(H) 1.50 - 6.50 K/cumm Comment:Testing performed by : [facility], [address] [place] [address]., [address] Imm gran abs 0.08 0.00 - 0.10 K/cumm [facility] ([place]) Comment:Testing performed by : [facility], [address] [place] [address]., [address] Lymphocyte abs 2.33 0.80 - 3.30 K/cumm [facility] ([facility]) Comment:Testing performed by : [facility], [address] [place] [address]., [address] Monocyte abs 0.59 0.20 - 0.80 K/cumm [facility] ([facility]) Comment:Testing performed by : [facility], [address] [place] [address]., [address] Eosinophil abs 0.29 0.00 - 0.50 K/cumm [facility] ([facility]) Comment:Testing performed by : [facility], [address] [place] [address]., [address] Basophil abs 0.09 0.00 - 0.10 K/cumm [facility] ([facility]) Comment:Testing performed by : [facility], [address] [place] [address]., [address] Neutrophil pct 67.2 % [facility] ([facility]) Comment: Interpretive Data Percent cell count reference ranges are not reported, since discordance with absolute values may lead to misinterpretation of CBC data. Current Interpretive Data was last revised on 2017. Testing performed by: [facility], [address] [place] [address]., [address] Imm gran pct 0.8 % [facility] ([facility]) Comment: Interpretive Data Percent cell count reference ranges are not reported, since discordance with absolute values may lead to misinterpretation of CBC data. Current Interpretive Data was last revised on 2017. Testing performed by: [address] [address] Lymphocyte pct 22.6 % [facility] ([facility]) Comment: Interpretive Data Percent cell count reference ranges are not reported, since discordance with absolute values may lead to misinterpretation of CBC data. Current Interpretive Data was last revised on 2017. Testing performed by: [facility], [address] [place] [address]., [address] Monocyte pct 5.7 % [facility] ([facility]) Comment: Interpretive Data Percent cell count reference ranges are not reported, since discordance with absolute values may lead to misinterpretation of CBC data. Current Interpretive Data was last revised on 2017. Testing performed by: [address] [address] Eosinophil pct 2.8 % [facility] ([facility]) Comment: Interpretive Data Percent cell count reference ranges are not reported, since discordance with absolute values may lead to misinterpretation of CBC data. Current Interpretive Data was last revised on 2017. Testing performed by: [address] [address] Basophil pct 0.9 % [facility] ([place]) Comment: Interpretive Data Percent cell count reference ranges are not reported, since discordance with absolute values may lead to misinterpretation of CBC data. Current Interpretive Data was last revised on 2017. Testing performed by: [address], [address] Blood 04/30/2025 8:46 AM CDT 04/30/2025 6:35 PM CDT us Dalton Pathak MD LAB BLOOD ORDERABLES Loree lamas Result [facility] [place] [address] * (ABNORMAL) CBC with auto differential (04/30/2025 8:46 AM CDT) WBC 10.30(H) 3.80 - 9.90 K/cumm Comment:Testing performed by : [address], [address] Hgb 12.9 11.9 - 15.5 g/dL [facility] ([place]) Comment:Testing performed by : [address], [address] Hct 42.6 35.6 - 45.5 % [facility] ([place]) Comment:Testing performed by : [address] [address] Plt 290 150 - 400 K/cumm [facility] ([place]) Comment:Testing performed by : [address], [address] MPV 10.7 9.1 - 12.3 fL [facility] ([place]) Comment:Testing performed by : [address], [address] RBC 4.89 3.90 - 5.20 M/cumm [facility] ([facility]) Comment:Testing performed by : [facility], [address] [place] [address], [address] MCV 87.1 81.3 - 96.4 fL [facility] ([place]) Comment:Testing performed by : [facility], [address] [place] [address], [address] MCH 26.4(L) 27.1 - 33.3 pg [facility] ([facility]) Comment:Testing performed by : [facility], [address] [place] [address], [address] MCHC 30.3(L) 32.3 - 35.7 g/dL [facility] ([facility]) Comment:Testing performed by : [address], [address] RDW CV 15.0(H) 11.1 - 14.9 % [facility] ([place]) Comment:Testing performed by : [address], [address] RDW SD 48.1 35.7 - 48.1 fL [facility] ([place]) Comment:Testing performed by : [address], [address] NRBC abs 0.00 0.00 - 0.01 K/cumm [facility] ([place]) Comment:Testing performed by : [address], [address] Blood 04/30/2025 8:46 AM CDT 04/30/2025 6:35 PM CDT us Dalton Pathak MD LAB BLOOD ORDERABLES Loree lamas Result [facility] ([place]) 1 [facility] Department of Laboratories [place], [place] [id number] * (ABNORMAL) Hemoglobin A1c (04/30/2025 8:46 AM CDT) [facility] Hgb A1C 8.1(H) 4.0 - 5.6 % Comment:Testing performed by : [address], [address] Estimated Average Glucose 186 mg/dL [facility] ([place]) Comment: The ADA recommends reporting an estimated Average Glucose (eAG) with all Hemoglobin A1c results using the equation derived from a study of 507 normal and diabetic adults. Minority populations were underrepresented and children were not included. (Diabetes Care 31:4148-3652, 2008). The eAG is not equivalent to a fasting glucose. Testing performed by: [facility], [address] [place] [address]., [address] Blood 04/30/2025 8:46 AM CDT 04/30/2025 6:35 PM CDT us Dalton Pathak MD LAB BLOOD ORDERABLES Loree lamas Result [facility] ([place]) 1 [facility] Department [place] [address] * (ABNORMAL) Lipid panel (04/30/2025 8:46 AM CDT) [facility] Cholesterol 239(H) 30 - 199 mg/dL Comment: Interpretive Data Ages < or = 19 years Acceptable: <170 mg/dL Borderline high: 170-199 mg/dL High: >or= 200 mg/dL Ages > or = 20 years Desirable: <200 mg/dL Borderline high: 200-239 mg/dL High: >or= 240 mg/dL Literature References: 1. Expert Panel on Integrated Guidelines for Cardiovascular Health and Risk Reduction in Children and Adolescents. Pediatrics 2011;128:S213 2. NCEP Expert Panel. Circulation 2004;110:227 Current Interpretive Data was last revised on 2018. Testing performed by: [facility], [address] [place] [address], [place]., [address] Triglycerides 281(H) <=149 mg/dL [facility] ([place]) Comment: Interpretive Data Ages < or = 9 years Acceptable: <75 mg/dL Borderline high: 75-99 mg/dL High: >or= 100 mg/dL Ages 10 to 20 years Acceptable: <90 mg/dL Borderline high: 90-129 mg/dL High: >or= 130 mg/dL Ages > or = 20 years Desirable: <150 mg/dL Borderline high: 150-199 mg/dL High: 200-499 mg/dL Very high: >or= 499 mg/dL Literature References: 1. Expert Panel on Integrated Guidelines for Cardiovascular Health and Risk Reduction in Children and Adolescents. Pediatrics 2011;128:S213 2. NCEP Expert Panel. Circulation 2004;110:227 Current Interpretive Data was last revised on 2018. Testing performed by: [facility], [address] [place] [address]., [address] HDL 33(L) >=40 mg/dL [facility] ([place]) Comment: Interpretive Data Ages < or = 19 years Acceptable: >45 mg/dL Borderline low: 40-45 mg/dL Low: <40 mg/dL Ages > or = 20 years Desirable: >or= 60 mg/dL Low: <40 mg/dL Literature References: 1. Expert Panel on Integrated Guidelines for Cardiovascular Health and Risk Reduction in Children and Adolescents. Pediatrics 2011;128:S213 2. NCEP Expert Panel. Circulation 2004;110:227 Current Interpretive Data was last revised on 2018. Testing performed by: [address] [address] LDL, calculated 154(H) <=129 mg/dL [facility] ([facility]) Comment: Interpretive Data Ages < or = 19 years Acceptable: <110 mg/dL Borderline high: 110-129 mg/dL High: >or= 130 mg/dL Ages > or = 20 years Optimal: <100 mg/dL Near optimal: 100-129 mg/dL Borderline high: 130-159 mg/dL High: >160 mg/dL Calculated using the Mauro LDL-C estimating equation. This equation was implemented on 2024. Prior to this date LDL-C was estimated using the Friedewald equation. Literature References: 1. Expert Panel on Integrated Guidelines for Cardiovascular Health and Risk Reduction in Children and Adolescents. Pediatrics 2011;128:S213 2. NCEP Expert Panel. Circulation 2004;110:227 3. Mauro Worley al. RAUL Cardiol. 2020 December 24;5(5):540-548. doi: 10.1001/jamacardio.2020.0013 Current Interpretive Data was last revised on 2024. Testing performed by: [address] [address] Non-HDL Cholesterol 206 mg/dL [facility] ([place]) Comment: Interpretive Data Ages < or = 19 years Acceptable: <120 mg/dL Borderline high: 120-144 mg/dL High: >145 mg/dL Ages > or = 20 years When triglycerides are >200 mg/dL, Non-HDL cholesterol is a secondary target of therapy with treatment goals that are 30 mg/dL greater than the LDL cholesterol target. Literature References: 1. Expert Panel on Integrated Guidelines for Cardiovascular Health and Risk Reduction in Children and Adolescents. Pediatrics 2011;128:S213 2. NCEP Expert Panel. Circulation 2004;110:227 Current Interpretive Data was last revised on 2018. Testing performed by: [address] [address] Chol/HDL ratio 7 DARNELLNE Denis [facility]ART[facility] ([place]) Comment:Testing performed by : [address] [address] Blood 04/30/2025 8:46 AM CDT 04/30/2025 6:35 PM CDT us Dalton Pathak MD LAB BLOOD ORDERABLES Loree l Result [facility] ([place]) 1 [facility] [place] [address] * (ABNORMAL) Comprehensive metabolic panel (04/30/2025 8:46 AM CDT) Sodium 141 135 - 145 mmol/L Comment:Testing performed by : [address] [address] Potassium, pl 4.0 3.3 - 4.9 mmol/L [facility] ([place]) Comment:Testing performed by : [address] [address] Chloride 102 97 - 110 mmol/L [facility] ([place]) Comment:Testing performed by : [address] [address] CO2 26 22 - 32 mmol/L [facility] ([place]) Comment:Testing performed by : [address] [address] Anion gap 13 2 - 15 mmol/L [facility] ([facility]) Comment:Testing performed by : [facility], [address] [place] [address]., [address] BUN 10 6 - 25 mg/dL [facility] ([facility]) Comment:Testing performed by : [facility], [address] [place] [address], [address] Creatinine 0.65 0.60 - 1.10 mg/dL [facility] ([facility]) Comment:Testing performed by : [address], [address] Glucose 237(H) 70 - 199 mg/dL [facility] ([facility]) Comment: Interpretive Data Fasting glucose >/= 126 mg/dl is diagnostic for diabetes. Fasting is defined as no caloric intake for at least 8 hours. Fasting glucose between 100 mg/dl to 125 mg/dl is diagnostic of prediabetes. In a patient with classic symptoms of hyperglycemia or hyperglycemic crisis, a random glucose >/= 200 mg/dl is diagnostic for diabetes. In the absence of unequivocal hyperglycemia, results should be confirmed by repeat testing. The classification and Diagnosis of Diabetes Diabetes Care 2021; 46: S19-S40. Current interpretive data was last revised 2022. Testing performed by: [facility], [address] [place] [address]., [address] Calcium 10.5(H) 8.5 - 10.3 mg/dL [facility] ([facility]) Comment:Testing performed by : [address] [address] Bilirubin, total 0.4 0.1 - 1.2 mg/dL [facility] ([facility]) Comment:Testing performed by : [address] [address] Protein, pl 7.8 6.5 - 8.5 g/dL [facility] ([facility]) Comment:Testing performed by : [address], [address] Albumin 4.1 3.5 - 5.0 g/dL [facility] ([facility]) Comment:Testing performed by : [address], [address] Alk phos 74 40 - 130 Units/L [facility] ([facility]) Comment:Testing performed by : [address] [place]., [address] ALT 49(H) 7 - 45 Units/L [facility] ([facility]) Comment:Testing performed by : [facility], [address] [place] [address]., [address] AST 53(H) 10 - 45 Units/L [facility] ([facility]) Comment:Testing performed by : [facility], [address] [place] [address]., [address] Blood 04/30/2025 8:46 AM CDT 04/30/2025 6:35 PM CDT us Dalton Pathak MD LAB BLOOD ORDERABLES Loree lamas Result [facility] ([place]) 1 [facility] [place] [address] * XR KUB (04/15/2025 2:08 PM CDT) Anatomical Region Laterality Modality Body, Abdomen N/A Computed Radiogr aphy 05/01/2025 4:34 AM CDT Narrative 05/01/2025 4:42 AM CDT EXAM DESCRIPTION: XR KUB REASON FOR STUDY: Calculus of kidney Follow up for right kidney stone removal from last week. States she has had this procedure done multiple times for kidney stones in the past. TECHNIQUE: Single radiographic view of the abdomen. COMPARISON: KUB of March 09, 2025. FINDINGS: BOWEL: There is a nonobstructive bowel gas pattern. SOFT TISSUES: There is a 7 mm stone projecting over the inferior pole of the left kidney, not significantly changed. The multiple large stones seen over the inferior pole of the right kidney have decreased in size, the largest measuring approximately 9 mm. Multiple phleboliths are seen in the pelvis, unchanged from previous. LINES/TUBES: A right ureteral stent is seen in place. No stones are seen along the expected course of either ureter. Multiple Hulka clips are seen in the pelvis. BONES: No acute osseous abnormality. IMPRESSION: Bilateral nonobstructing nephrolithiasis, improved on the right as compared to previous. Right ureteral stent in place. THIS IS AN ELECTRONICALLY VERIFIED FINAL REPORT 05/01/2025 4:42 AM - Electronically signed by Irma Pedroza M.D. SN: SN Report ID: [id number] Reading Location: [id number] Procedure Note Irma Pedroza MD - 05/01/2025 EXAM DESCRIPTION: XR KUB REASON FOR STUDY: Calculus of kidney Follow up for right kidney stone removal from last week. States she hashad this procedure done multiple times for kidney stones in the past. TECHNIQUE: Single radiographic view of the abdomen. COMPARISON: KUB of March 09, 2025. FINDINGS: BOWEL: There is a nonobstructive bowel gas pattern. SOFT TISSUES: There is a 7 mm stone projecting over the inferior pole ofthe left kidney, not significantly changed. The multiple large stones seenover the inferior pole of the right kidney have decreased in size, the largest measuring approximately 9 mm. Multiple phleboliths are seen in thepelvis, unchanged from previous. LINES/TUBES: A right ureteral stent is seen in place. No stones are seen along the expected course of either ureter. Multiple Hulka clips are seenin the pelvis. BONES: No acute osseous abnormality. IMPRESSION: Bilateral nonobstructing nephrolithiasis, improved on the right ascompared to previous. Right ureteral stent in place. THIS IS AN ELECTRONICALLY VERIFIED FINAL REPORT 05/01/2025 4:42 AM - Electronically signed by Irma Pedroza M.D. SN: SN Report ID: [id number] Reading Location: [id number] Thony Ochoa MD IMG XR PROCEDURES Fi nal Result * Surgical pathology (04/08/2025 11:37 AM CDT) Tissue (Calculus/calculi /stone, gross and Chemical Analysis) 04/08/2025 9:56 AM CDT Narrative [facility] ([facility]) - 04/09/2025 9:01 AM CDT PSYCHIATRIC results best viewed via link to PDF [facility] Department of Pathology [address] [place] [id number] Note to Patients: This report may contain a detailed description of human tissue sent by a health care provider to the laboratory for pathologic evaluation. The content of this report is essential for diagnosis and may provide important critical findings. This information may be unfamiliar to patients to review without a medical professional present. It is advised that the patient review this report in the presence of a health care provider who can answer questions and explain the details. Final Report Patient Name: ERMA SANCHEZ Address: [address] [place] [address], [place] [address] Gender: F : 1965 (Age: 59) Service: Surgery Location: [facility] Hospital #: [id number] Patient Type: [facility] Taken: 04/08/2025 Received: 04/08/2025 Accessioned: 04/08/2025 Reported: 04/09/2025 Physician(s):Thony Ochoa M.D. Diagnosis: Right ureteral stones, removal (gross only): - Consistent with ureteral stones. - Pending [facility] chemical analysis. Ryley Cortes M.D. Report Electronically Reviewed and Signed Out By Ryley Cortes M.D. 04/09/2025 09:01:43 Specimen(s) Received: A: Right ureteral stones Clinical History: Calculus of kidney. Right ureteroscopy, laser lithotripsy with right stent exchange, retrograde pyelogram, stone extraction Gross Description: The specimen is submitted in a single container labeled ERMA SANCHEZ and right ureteral stones. It is an approximate 0.5 cc aggregate of multiple solano brown granular stone and stone fragments. The specimen is entirely submitted to [facility] Laboratory for chemical analysis. When the [facility] report has been finalized, it will be available in the laboratory section of [facility]. If [facility] is not available, please call the Department of Pathology at [facility] ([phone]) to obtain a copy of the report. Vinay Meade R.N., P.A./Constanza Boyle M.D. REPORT IMAGES AND SCANNED DOCUMENTS, IF INCLUDED, ONLY VIEWABLE IN PDF VERSION OF REPORT The performance characteristics of some immunohistochemical stains, fluorescence in-situ hybridization tests and immunophenotyping by flow cytometry cited in this report (if any) were determined by the Surgical Pathology Department at [facility] as part of an ongoing quality improvement coordinator (rn) program and in compliance with federally mandated regulations drawn from the Clinical Laboratory Improvement Act of 1988 (CLIA '88). Some of these tests rely on the use of analyte specific reagents and are subject to specific labeling requirements by the US Food and Drug Administration. Such diagnostic tests may only be performed in a facility that is certified by the Department of Health and Human Services as a high complexity laboratory under CLIA '88. The FDA has determined that such clearance or approval is not necessary. This test is used for clinical purposes. It should not be regarded as investigational or for research. Nevertheless, federal rules concerning the medical use of analyte specific reagents require that the following disclaimer be attached to the report: This test was developed and its performance characteristics determined by the Surgical Pathology Department [facility]. It has not been cleared or approved by the U. S. Food and Drug Administration. Note for decalcified specimens: This assay has not been validated on decalcified tissues. Results should be interpreted with caution given the possibility of false negativity on decalcified specimens Thony Ochoa MD LAB PATHOLOGY ORDERA BLES Final Result PATHOLOGY [facility] [address] [place] [address] * POCT glucose (04/08/2025 10:09 AM CDT) Glucose, POC 176 70 - 199 mg/dL Blood 04/08/2025 10:0 9 AM CDT 04/08/2025 10:09 AM CDT Thony Ochoa MD LAB POCT ORDERABLES - DEVICE Final Result [facility] [place] [address] * FL Retro Pyelo (In Or) (04/08/2025 10:05 AM CDT) Anatomical Region Laterality Modality Body N/A Radio Fluoroscop y 04/26/2025 4:14 PM CDT Narrative 04/26/2025 4:15 PM CDT EXAM DESCRIPTION: FL RETRO PYELO (IN OR) REASON FOR STUDY: kidney stone Retrograde. Right stent placement. FT: 0.7 min Mgy: 39.80 Omni: 40cc COMPARISON: 03/09/2025 RADIATION DOSE: Dose: 2224.04 mGycm2 Dose Area Product (DAP) Views: 1 TECHNIQUE: Intraoperative fluoroscopy was provided for procedure performed by Dr. Ochoa. FINDINGS: Intraoperative fluoroscopy was provided for procedure performed by Dr. Ochoa. 8 intraoperative fluoroscopic images were obtained of the abdomen and pelvis in the frontal projection. There is a wire noted in the right renal collecting system. There is contrast noted in the right renal collecting system. There is subsequent placement of a right nephroureteral stent with its proximal tip in the right renal pelvis. IMPRESSION: Intraoperative fluoroscopy was provided for procedure performed by Dr. Ochoa. Please see procedure note. THIS IS AN ELECTRONICALLY VERIFIED FINAL REPORT 04/26/2025 4:15 PM - Electronically signed by Blanca Walters D.O. PS: PS Report ID: [id number] Reading Location: [id number] Procedure Note Blanca Walters DO - 04/26/2025 EXAM DESCRIPTION: FL RETRO PYELO (IN OR) REASON FOR STUDY: kidney stone Retrograde. Right stent placement. FT: 0.7 min Mgy: 39.80 Omni: 40cc COMPARISON: 03/09/2025 RADIATION DOSE: Dose: 2224.04 mGycm2 Dose Area Product (DAP) Views: 1 TECHNIQUE: Intraoperative fluoroscopy was provided for procedureperformed by Dr. Ochoa. FINDINGS: Intraoperative fluoroscopy was provided for procedure performed by Dr. Ochoa. 8 intraoperative fluoroscopic images were obtained of theabdomen and pelvis in the frontal projection. There is a wire noted in the right renal collecting system. There is contrast noted in the right renal collecting system. There is subsequent placement of a rightnephroureteral stent with its proximal tip in the right renal pelvis. IMPRESSION: Intraoperative fluoroscopy was provided for procedure performed by Dr. Ochoa. Please see procedure note. THIS IS AN ELECTRONICALLY VERIFIED FINAL REPORT 04/26/2025 4:15 PM - Electronically signed by Blanca Walters D.O. PS: PS Report ID: [id number] Reading Location: [place] [address] Thony Ochoa MD [facility] [place] EDURES Final Result * Stone analysis (04/08/2025 10:04 AM CDT) Pathologist [facility] Stone analysis Not Reported [facility] Comment:Testing performed by : [facility], [address] [place] [address]., [id number] Source, Kid Stone Right Ureter [facility] ([place]) Comment:Testing performed by : [facility], [address] [place] [address]., [id number] Interp, Kid stone analysis See Footnote [facility] ([place]) Comment: RESULT: 50% Calcium oxalate monohydrate. 50% Uric acid. Testing performed by: [facility], [address] [place] [address], [place]., [address] COMMENT See Footnote [facility] ([place]) Comment: For stones containing calcium oxalate, calcium phosphate, and/or uric acid, a 24 hr urinary supersaturation test may help detect underlying risk factors for this type of stone formation and provide guidance for a stone prevention strategy. ADDITIONAL INFORMATION This test was developed and its performance characteristics determined by [facility] in a manner consistent with CLIA requirements. This test has not been cleared or approved by the U.S. Food and Drug Administration. Test Performed by: [facility] [address] [address] Shoe Turner: Gloria Anthony Ph.D.; CLIA# [id number] Testing performed by: [address], [address] Stone 04/08/2025 10:0 4 AM CDT 04/13/2025 11:27 AM CDT Narrative [facility] ([place]) - 04/22/2025 9:17 PM CDT Right Ureteral stones Thony Ochoa MD LAB URINE ORDERABLES Final Result Performing Organization Address [facility] de Phone Number [facility] ([place]) 1 [facility] Department [place] [address] Aj ref Lab * WA AN ELECTIVE SUPRAGLOTTIC AIRWAY (04/08/2025 8:49 AM CDT) Narrative Sabine Nguyen CRNA - 04/08/2025 8:49 AM CDT Sabine Nguyen CRNA 04/08/2025 8:50 AM Airway Patient location: OR Urgency: elective Date/time: 04/08/2025 8:33 AM Indications for airway management: anesthesia and airway protection Difficult airway: no Staff: Placed by: Anesthesiologist: Hector Franz DO APPLICATIONS PROGRAMMER ANALYST: Sabine Nguyen CRNA Emergent airway documentation: Risks and benefits discussed: yes Consent obtained: yes Consent given by: patient Airway prep: Preoxygenated: yes Patient position: sniffing Mask difficulty assessment: 1 - vent by mask Sedation level during airway: GA Final airway details: Final airway type: supraglottic airway Final supraglottic airway: IGel SGA size: 3 Number of attempts: 1 Sbaine Nguyen CRNA ANESTHESIA ORDERABLES Final Result * POCT glucose (04/08/2025 7:49 AM CDT) Glucose, POC 199 70 - 199 mg/dL Blood 04/08/2025 7:49 AM CDT 04/08/2025 7:49 AM CDT Thony Ochoa MD LAB POCT ORDERABLES - DEVICE Final Result Performing Organization Address [facility] Co de Phone Number [facility] ([place]) [facility] [place] [address] * XR KUB (03/09/2025 11:43 AM CDT) Anatomical Region Laterality Modality Body, Abdomen N/A Computed Radiogr aphy 03/19/2025 10:2 6 PM CDT Narrative 03/19/2025 10:29 PM CDT EXAM DESCRIPTION: XR KUB REASON FOR STUDY: calculus of kidney Follow up for right kidney stone surgery February 25 Soreness to the right abdomen History of bilateral kidney stones TECHNIQUE: 3 radiographic view of the abdomen. COMPARISON: 02/25/2025 FINDINGS: BOWEL: Nonobstructive gas pattern. SOFT TISSUES: No abnormal calcifications. LINES/TUBES: Right-sided ureteral stent is noted. Tubal ligation clips project over the bilateral pelvis BONES: No acute osseous abnormality. Prominent calcification project over the lower right kidney similar to previous. Smaller calcification projects of the lower left kidney. No definite stones are seen along the ureteral stent. IMPRESSION: No acute abnormality THIS IS AN ELECTRONICALLY VERIFIED FINAL REPORT 03/19/2025 10:29 PM - Electronically signed by Azael BLANDON: JAMIA Report ID: [id number] Reading Location: [place] [address] Procedure Note Azael Smith MD - 03/19/2025 EXAM DESCRIPTION: XR KUB REASON FOR STUDY: calculus of kidney Follow up for right kidney stone surgery February 25 Soreness to the right abdomen History of bilateral kidney stones TECHNIQUE: 3 radiographic view of the abdomen. COMPARISON: 02/25/2025 FINDINGS: BOWEL: Nonobstructive gas pattern. SOFT TISSUES: No abnormal calcifications. LINES/TUBES: Right-sided ureteral stent is noted. Tubal ligation clips project over the bilateral pelvis BONES: No acute osseous abnormality. Prominent calcification project over the lower right kidney similar to previous. Smaller calcification projects of the lower left kidney. No definite stones are seen along the ureteral stent. IMPRESSION: No acute abnormality THIS IS AN ELECTRONICALLY VERIFIED FINAL REPORT 03/19/2025 10:29 PM - Electronically signed by Azael BLANDON: JAMIA Report ID: [id number] Reading Location: [place] [address] Thony Ochoa MD IMG XR PROCEDURES Fi nal Result * (ABNORMAL) POCT glucose (02/25/2025 9:45 AM CDT) Glucose, POC 278(H) 70 - 199 mg/dL Blood 02/25/2025 9:45 AM CDT 02/25/2025 9:45 AM CDT Thony Ochoa MD LAB POCT ORDERABLES - DEVICE Final Result Performing Organization Address City/[facility]/ZIP Co de Phone Number [facility] ([place]) [facility] [place] [address] * WA AN ELECTIVE SUPRAGLOTTIC AIRWAY (02/25/2025 8:43 AM CDT) Narrative Landon Reynolds CRNA - 02/25/2025 8:43 AM CDT Landon Reynolds CRNA 02/25/2025 8:43 AM Airway Patient location: OR Urgency: elective Indications for airway management: anesthesia Difficult airway: no Staff: Placed by: APPLICATIONS PROGRAMMER ANALYST: Landon Renyolds CRNA Emergent airway documentation: Risks and benefits discussed: yes Consent obtained: yes Consent given by: patient Airway prep: Preoxygenated: yes Patient position: sniffing MILS maintained throughout: yes Mask difficulty assessment: 0 - not attempted Sedation level during airway: GA Final airway details: Final airway type: supraglottic airway Final supraglottic airway: unique SGA size: 3 Number of attempts: 1 Hector Franz DO ANESTHESIA ORDERABL ES Final Result * (ABNORMAL) POCT glucose (02/25/2025 8:28 AM CDT) Glucose, POC 314(H) 70 - 199 mg/dL Blood 02/25/2025 8:28 AM CDT 02/25/2025 8:28 AM CDT Thony Ochoa MD LAB POCT ORDERABLES - DEVICE Final Result Performing Organization Address City/[facility]/ZIP Co de Phone Number [facility] ([place]) 1 [facility] [place] [address] * (ABNORMAL) POCT glucose (02/25/2025 8:03 AM CDT) Glucose, POC 288(H) 70 - 199 mg/dL Blood 02/25/2025 8:03 AM CDT 02/25/2025 8:03 AM CDT Thony Ochoa MD LAB POCT ORDERABLES - DEVICE Final Result Performing Organization Address [facility] Co de Phone Number [facility] ([place]) [address] [place] [address] * Potassium, whole blood (02/25/2025 7:47 AM CDT) Potassium, bld 3.8 3.3 - 4.9 mmol/L Comment: Interpretive Data This method is not able to assess for hemolysis, which may falsely increase potassium concentrations. If further testing is needed to evaluate this result, consider in-laboratory plasma potassium. Current Interpretive Data was last revised on 2022. Blood 02/25/2025 7:47 AM CDT 02/25/2025 7:50 AM CDT Hector Franz DO LAB BLOOD ORDERABLE S Final Result Performing Organization Address City/[facility] Co de Phone Number [facility] ([place]) 1 [facility] [place] [address] * (ABNORMAL) POCT glucose (02/25/2025 7:28 AM CDT) Glucose, POC 312(H) 70 - 199 mg/dL Blood 02/25/2025 7:28 AM CDT 02/25/2025 7:28 AM CDT Thony Ochoa MD LAB POCT ORDERABLES - DEVICE Final Result [facility] [place]) 1 [facility] [place] [address] * X-ray abdomen 1 view (02/25/2025 6:59 AM CDT) Anatomical Region Laterality Modality Body, Abdomen N/A Computed Radiogr aphy 02/25/2025 2:27 PM CDT Narrative 02/25/2025 2:28 PM CDT EXAM DESCRIPTION: XR ABDOMEN AP 1 VIEW REASON FOR STUDY: kidney stone, Pre Op Right side stone x 20 years pt scheduled for lithotripsy today TECHNIQUE: AP supine radiographic view of the abdomen. COMPARISON: 11/17/2024. FINDINGS: BOWEL: Bowel-gas pattern is nonspecific/non obstructive. SOFT TISSUES: There are calcifications projecting over the lower pole of the right kidney, the largest measures 1.2 cm. There is a punctate calcification projecting over the lower pole of the left kidney measuring approximately 5 mm. There are pelvic calcifications, presumably phleboliths. Tubal ligation clips are noted. LINES/TUBES: None. BONES: Degenerative changes within the spine and hips. No acute abnormality IMPRESSION: 1. Bilateral nephrolithiasis, larger on the right than the left, grossly stable. 2. Pelvic calcifications, presumably phleboliths THIS IS AN ELECTRONICALLY VERIFIED FINAL REPORT 02/25/2025 2:28 PM - Electronically signed by Michelle Ram M.D. TW: TW Report ID: [id number] Reading Location: [id number] Procedure Note Michelle Ram MD - 02/25/2025 EXAM DESCRIPTION: XR ABDOMEN AP 1 VIEW REASON FOR STUDY: kidney stone, Pre Op Right side stone x 20 years pt scheduled for lithotripsy today TECHNIQUE: AP supine radiographic view of the abdomen. COMPARISON: 11/17/2024. FINDINGS: BOWEL: Bowel-gas pattern is nonspecific/non obstructive. SOFT TISSUES: There are calcifications projecting over the lower pole ofthe right kidney, the largest measures 1.2 cm. There is a punctatecalcification projecting over the lower pole of the left kidney measuring approximately5 mm. There are pelvic calcifications, presumably phleboliths. Tuballigation clips are noted. LINES/TUBES: None. BONES: Degenerative changes within the spine and hips. No acuteabnormality IMPRESSION: 1. Bilateral nephrolithiasis, larger on the right than the left, grossly stable. 2. Pelvic calcifications, presumably phleboliths THIS IS AN ELECTRONICALLY VERIFIED FINAL REPORT 02/25/2025 2:28 PM - Electronically signed by Michelle Ram M.D. TW: TW Report ID: [id number] Reading Location: [place] [address] Thony Ochoa MD IMG XR PROCEDURES Fi nal Result * (ABNORMAL) Urinalysis reflex to microscopic and culture Urine (02/25/2025 6:49 AM CDT) Color, ur Straw Yellow Clarity, ur Clear Clear [facility] ([place]) Specific gravity, ur 1.017 1.003 - 1.030 [facility] ([place]) pH, urine 6.0 [facility] ([place]) Comment: Interpretive Data U rine pH is affected by diet, medications, systemic acid-base disturbances, and renal tubular function. pH may affect urinary stone formation. For example, urine pH below 6.0 may help reduce the tendency for calcium phosphate stones and pH greater than 6.0 may reduce the tendency for uric acid stone formation. Source: [place] [employer] Current Interpretive Data was last revised on 2017 Protein, ur ql Negative Negative [facility] ([place]) Glucose, ur ql 4+(A) Negative [facility] ([place]) Ketones, ur Negative Negative [facility] ([place]) Bilirubin, ur Negative Negative [facility] ([place]) Blood, ur Negative Negative [facility] ([place]) Urobilinogen, ur <2.0 <2.0 mg/dL [facility] ([place]) Nitrite, ur Negative Negative [facility] ([place]) Leukocyte esterase, ur Negative Negative [facility] ([place]) UA reflex comment Reflex conditions for microscopic UA and culture not met. [facility] ([place]) Urine 02/25/2025 6:49 AM CDT 02/25/2025 6:53 AM CDT Thony Ochoa MD LAB MICROBIOLOGY - G ENERAL ORDERABLES Final Result [facility] [place] [facility] [place] [address] * Screening Mammogram Bilateral W Dany (07/18/2024 9:41 AM [facility]ERS[facility]) Anatomical Region Laterality Modality Breast Bilateral Mammography Impressions 07/19/2024 10:24 PM [facility] BI-RADS ATLAS category (overall): 2 - Benign There is no mammographic evidence of malignancy. A 1 year screening mammogram is recommended. The patient has been or will be contacted. We recommend annual screening mammography for women at average risk of breast cancer beginning at age 40, based on guidelines of the [employer] (ACR Practice Parameter for the Performance of Screening and Diagnostic Mammography) and [employer]. For women with and elevated risk of breast cancer, please refer to the ACR Practice Parameter for specific screening recommendations. The patient will be entered into a reminder system with a target due date of 1 year for her next screening exam. Narrative 07/19/2024 10:24 PM [facility] Screening Mammogram Bilateral W Dany: 07/18/24 The study was acquired using full field digital technology and interpreted from soft copy. 2D digital mammographic views, as well as 3D digital tomosynthesis were performed in the CC and MLO projections. This study was resulted using Computer-Aided Detection (CAD). CLINICAL: Screening mammogram, encounter for. Medical history includes smoking. No known family history of breast cancer. COMPARISONS: 03/11/2021 SCREENING MAMMOGRAM BILATERAL W DANY BREAST TISSUE: There are scattered areas of fibroglandular density. FINDINGS: There are benign calcifications in both breasts. No suspicious masses, suspicious calcifications, or other suspicious findings are seen within either breast. There has been no suspicious change. Self Screening Mammogram IMG MAMMO PROCEDURES Fi nal Result * Diabetic Eye Exam (07/06/2023) Historical Provider HEALTH MAINTENANCE Edited Result - Final * Hepatitis C antibody (02/17/2021 11:47 AM CDT) Hep C Ab Nonreactive Nonreactive [facility] Comment: Interpretive Data Nonreactive: Antibodies to HCV not detected. Does NOT exclude the possibility of recent exposure to HCV. Equivocal: Equivocal for HCV antibodies. Supplemental molecular testing will be automatically performed to determine infection status in accordance with current CDC screening recommendations. Reactive: Positive for HCV antibodies. This may represent current or past HCV infection. Supplemental molecular testing will be automatically performed to determine current infection status in accordance with current CDC screening recommendations. Interpretive data was last revised on 2019. Blood specimen (specimen) 02/17/2021 11:47 AM CDT 02/17/2021 5:11 PM CDT Dalton Pathak MD LAB MICROBIOLOGY - GENERA L ORDERABLES Final Result [facility] [address] [address] Department [place] [address] * Genital fluid pap smear, thin prep and HPV (09/05/2015 6:00 PM [facility]) Clinical information SEE NOTE HISTORICAL RESULTS Comment:Information not prov ided LMP SEE NOTE HISTORICAL RESULTS Comment:03/2015 Previous Pap SEE NOTE HISTORI EILEEN RESULTS Comment:INFORMATION NOT PROV IDED Previous biopsy SEE NOTE HIST ORICAL RESULTS Comment:INFORMATION NOT PROV IDED Referral specimen source SEE NOTE HISTORICAL RESULTS Comment:Cervix, Endocervix Statement of adequacy SEE NOTE HISTORICAL RESULTS Comment: Satisfactory for evaluation. Endocervical/transformation zone component present. Referral specimen, interp SEE NOTE HISTORICAL RESULTS Comment:Negative for intraep ithelial lesion or malignancy. Variable comment SEE NOTE HIS TORICAL RESULTS Comment: This Pap test has been evaluated with computer assisted technology. Human papillomavirus RNA, High Risk E6/E7 Not Detected Not Detected HISTORICAL RESULTS Comment: This test was performed using the APTIMA HPV Assay ([employer] This assay detects E6/E7 viral messenger RNA (mRNA) from 14 high-risk HPV types (16,18,31,33,35,39,45,51,52,56,58,59,66,68). Genital 09/05/2015 6:00 PM [facility] Narrative HISTORICAL RESULTS - 09/09/2015 4:00 AM [facility] Test performed at [facility] [address] [address] Director: ROSSANA ADLER MD us Historical Provider LAB CYTOLOGY ORDERABLES F inal Result HISTORICAL RESULTS from Last 3 Months or Most Recently Relevant to Health Maintenance Insurance [employer] PPO Advance Directives For more information, please contact: [phone] * Full Code (Latest Code Status on File) Date Activated Date Inactivated Comments 06/20/2021 8:24 PM 06/23/2021 8:55 PM * Full Code Date Activated Date Inactivated Comments 05/16/2021 7:58 PM 05/18/2021 5:57 PM Care Teams Yarn Examiner Skeins Relationship Specialty Start Date End Date Dalton Pathak MD [address] [place] [address] PCP - General Family Medicine 05/08/21 Thony Ochoa MD [address] [place] [address] Consulting Physician Urology 05/18/21
--- OUTSIDE RECORDS SUMMARY | 2025-05-25 13:03 | XMS_ITS | Encounter Summary ---
Author Organization [facility] Healthcare Address [address] [place] [address] Care Team Providers Care Podopediatrician Name Role Phone Dalton Broderick MD Primary Care Provider [phone] [phone] Thony Ochoa MD Unavailable [phone]- [phone] Encounter Details Date Type Department Care Team (Late st Contact Info) Description 05/16/2021 Telephone [facility] - Interventional Radiology [facility] [place] [address] Sharon Siddiqi RN Social History Tobacco Use Types Packs/Day Years Used Date Smoking Tobacco: Former Cigarettes Q uit: 08/12/2014 Smokeless Tobacco: Never Alcohol Use Standard Drinks/Week Comments No 0 (1 standard drink = 0.6 oz pur e alcohol) AUDIT-C Answer Date Recorded Q1: How often do you have a drink containing alc ohol? Never 05/02/2021 Q2: How many drinks containi ng alcohol do you have on a typical day when you are drinking? 1 or 2 05/02/2021 Q3: How often do you have six or more drinks on one occasion? Never 05/02/2021 PHQ-2 Answer Date Recorded PHQ-2 Total Score (If total score is 3 or more points, staff should administer the PHQ-9) 0 04/28/2021 Comments No Sex and Gender Information Value Date Recorded Sex Assigned at Not on file Legal Sex Female 8:28 AM LACQUER SIZER Gender Identity Not on file Sexual Orientation Not on file documented as of this encounter Plan of Treatment Not on file documented as of this encounter Visit Diagnoses Not on filedocumented in this encounter Additional Health Concerns Infection Onset Date Last Indicated Resolved Time COVID: Suspected 09/14/2024 09/14/2024 09/14/2024 9:48 AM LACQUER SIZER documented as of this encounter Care Teams Podopediatrician Relationship Specialty Start Date End Date Dalton Broderick MD [address] [place] [address] PCP - General Family Medicine 05/08/21 Thony Ochoa MD [address] [place] [address] Consulting Physician Urology 05/18/21 documented as of this encounter
--- OUTSIDE RECORDS SUMMARY | 2025-05-25 13:03 | XMS_ITS | Encounter Summary ---
Author Organization [facility] Healthcare Address [address] [place] [address] Care Team Providers Care Coach Cleaner Name Role Phone Dalton Broderick MD Primary Care Provider [phone] Thony Ochoa MD Unavailable [phone]- [phone] Encounter Details Date Type Department Care Team (Late st Contact Info) Description 06/19/2021 Telephone [facility] - Interventional Radiology [facility] [place] [address] Sharon Siddiqi RN Social History Tobacco Use Types Packs/Day Years Used Date Smoking Tobacco: Former Cigarettes Q uit: 08/12/2014 Smokeless Tobacco: Never Alcohol Use Standard Drinks/Week Comments No 0 (1 standard drink = 0.6 oz pur e alcohol) AUDIT-C Answer Date Recorded Q1: How often do you have a drink containing alc ohol? Monthly or less 06/23/2021 Q2: How many drinks containi ng alcohol do you have on a typical day when you are drinking? 1 or 2 06/23/2021 Q3: How often do you have si x or more drinks on one occasion? Never 06/23/2021 PHQ-2 Answer Date Recorded PHQ-2 Total Score (If total score is 3 or more points, staff should administer the PHQ-9) 0 04/28/2021 Comments No Sex and Gender Information Value Date Recorded Sex Assigned at Not on file Legal Sex Female 8:28 AM USABILITY STRATEGIST Gender Identity Not on file Sexual Orientation Not on file documented as of this encounter Plan of Treatment Not on file documented as of this encounter Visit Diagnoses Not on filedocumented in this encounter Additional Health Concerns Infection Onset Date Last Indicated Resolved Time COVID: Suspected 09/14/2024 09/14/2024 09/14/2024 9:48 AM USABILITY STRATEGIST documented as of this encounter Care Teams Coach Cleaner Relationship Specialty Start Date End Date Dalton Broderick MD [address] [place] [address] PCP - General Family Medicine 05/08/21 Thony Ochoa MD [address] [place] [address] Consulting Physician Urology 05/18/21 documented as of this encounter
--- OUTSIDE RECORDS SUMMARY | 2025-05-25 13:03 | XMS_ITS | Clinical Summary ---
Author Organization [facility] Address [address] [place] [address] Care Team Providers Care Director Of Education And Training Name Role Phone Frdeerick Quinones MD Primary Care Provider [phone] Source Comments [facility],non-owned Affiliates and Associated Physician Practices is amultiple site organization consisting of ambulatory clinics and hospital sitesin [place], [place], [place] and [place]. This disclosure is being madepursuant to the Care Everywhere program and may not contain all information available regarding this patient. Last updated 18.[facility] Allergies No known active allergies Medications * Be aware that medications may not be up to date on this document. Alwaysverify current medications with the patient. losartan-hydroCH LOROthiazide (HYZAAR) 100-25 MG tablet Take 1 Tab by mouth once daily Active raNITIdine (ZANTAC) 300 MG tablet Take 300 mg by mouth once daily Active allopurinol (ZYLOPRIM) 300 MG tablet Take 300 mg by mouth once daily Active LABETALOL HCL PO Act endy fluticasone propionate (FLONASE) 50 MCG/ACT nasal sprayIndications :Rhinosinusitis, ETD (Eustachian tube dysfunction), bilateral [place] 2 Sprays into each nostril once daily 1 Bottle 7 Active AMLODIPINE BESYLATE PO Active SIMVASTATIN PO Activ e Albuterol Sulfate (PROAIR HFA IN) Active methylPREDNISolo ne (MEDROL DOSEPAK) 4 MG tabletIndication s:Acute bronchitis, unspecified organism Take by mouth as directed 1 Each 7 Active albuterol HFA (PROAIR HFA) 108 (90 BASE) MCG/ACT inhalerIndicatio ns:Acute bronchitis, unspecified organism Inhale 2 puffs by mouth every 4 hours as needed for Shortness of Breath, Wheezing or Cough 1 Inhaler 7 Active Social History Tobacco Use Types Packs/Day Years Used Date Smoking Tobacco: Former Smokeless Tobacco: Never Comments Unknown Sex and Gender Information Value Date Recorded Sex Assigned at Not on file Legal Sex Female 9:30 AM CDT Gender Identity Not on file Sexual Orientation Not on file Last Filed Vital Signs Vital Sign Reading Time Taken Comments Blood Pressure 126/64 06/27/2017 4:39 PM CDT Pulse 93 06/27/2017 4:39 PM CDT Temperature 37.2 C (99 F) 06/27/2017 4:39 PM CDT Respiratory Rate - - Oxygen Saturation 97% 11/21/2016 10:58 AM CDT Inhaled Oxygen Concentration - - Weight 142.4 kg (314 lb) 06/27/2017 4:39 PM CDT Height 174 cm (5' 8.5) 06/27/2017 4:39 PM CDT Body Mass Index 47.05 06/27/2017 4:39 PM CDT Plan of Treatment Health Maintenance Due Date Last Done Comments COLOGUARD (AGES 45-75) - COL ON CA SCREENING 1963 COLON MONITORING 1963 COLONOSCOPY - COLON CA SCREENING 1963 CT COLONOGRAPHY - COLON CA SCREENING 1963 Colorectal Cancer Screening 1963 FIT - COLON CA SCREENING 1963 FLEX SIG - COLON CA SCREENING 1963 MAMMOGRAM 1963 HIV SCREENING 1978 HEPATITIS C SCREENING 06/23/1981 DTAP/TDAP/TD VACCINES (1 - Tdap) 1982 PNEUMOCOCCAL VACCINE 50+ (1 of 1 - PCV) 2013 ZOSTER VACCINE (1 of 2) 2013 SCREENING FOR DIABETES 04/09/2017 DEPRESSION SCREENING 08/26/2024 COVID-19 VACCINE (1 - 2023-2 5 season) 2025 INFLUENZA VACCINE (#1) 2025 Respiratory Syncytial Virus (RSV) Vaccine Pt: or over 60 yrs (1 - 1-dose 75+ series) 2038 HEPATITIS B VACCINE Aged Out No longe r eligible based on patient's age to complete this topic HIB VACCINE Aged Out No longer eligi ble based on patient's age to complete this topic HPV VACCINE Aged Out No longer eligi ble based on patient's age to complete this topic MENINGOCOCCAL (Group B) VACC INE SHARED DECISION-MAKING Aged Out No longer eligibl e based on patient's age to complete this topic MENINGOCOCCAL GROUPS A/C/Y/W VACCINE Aged Out No longer eligible b ased on patient's age to complete this topic Insurance MEDICAID - [place] Care Teams Director Of Education And Training Relationship Specialty Start Date End Date Frederick Quinones MD [address], [place] [id number] PCP - General Internal Medicine 11/21/16
--- OUTSIDE RECORDS SUMMARY | 2025-05-25 13:03 | XMS_ITS | Encounter Summary ---
Author Organization [facility] Address [address] [place] [address] Care Team Providers Care Chemical Equipment Sales Engineer Name Role Phone Dalton Broderick MD Primary Care Provider [phone] Thony Ochoa MD Unavailable [phone] Encounter Details Date Type Department Care Team (Late st Contact Info) Description 05/15/2021 Telephone [facility] - Interventional Radiology [facility] [place] [address] Sharon Siddiqi RN Social History [...] should administer the PHQ-9) 0 04/28/2021 Comments Unknown Sex and Gender Information Value Date Recorded Sex Assigned at Not on file Legal Sex Female 8:28 AM MARINE EQUIPMENT TEST ENGINEER Gender Identity Not on file Sexual Orientation Not on file documented as of this encounter Plan of Treatment Not on file documented as of this encounter Visit Diagnoses Not on filedocumented in this encounter Additional Health Concerns Infection Onset Date Last Indicated Resolved Time COVID: Suspected 09/14/2024 09/14/2024 09/14/2024 9:48 AM MARINE EQUIPMENT TEST ENGINEER documented as of this encounter Care Teams Chemical Equipment Sales Engineer Relationship Specialty Start Date End Date Dalton Broderick MD [address] [place] [address] PCP - General Family Medicine 05/08/21 Thony Ochoa MD [address] [place] [address] Consulting Physician Urology 05/18/21 documented as of this encounter
--- OUTSIDE RECORDS SUMMARY | 2025-05-25 13:03 | XMS_ITS | Clinical Summary ---
Author Organization [facility] Address [address] [place] [address] Phone Care Team Providers Care Lube Man Name Role Phone Dalton Broderick MD Primary Care Provider [phone] Allergies Active Allergy Reactions Criticality Noted Date Comments Hydrocodone-Acetaminop hen Hallucinations Medium 06/10/2024 itching Iodinated Contrast Media Hives Medium 02/17/2021 Nitrofurantoin Unknown 11/21/2009 Statins Other (see Comments) Low 10/11/2023 GI upset w/ simvastatin, atorvastatin, and rosuvastatin Medications glipiZIDE (GLUCOTROL) 5 MG Tablet Take 1 Tablet by mouth 2 times daily (with meals). 60 Tablet 11/10/2024 Active Social History Tobacco Use Types Packs/Day Years Used Date Smoking Tobacco: Never Assessed Comments Unknown Sex and Gender Information Value Date Recorded Sex Assigned at Not on file Legal Sex Female 11:24 PM CDT Gender Identity Not on file Sexual Orientation Not on file Last Filed Vital Signs Vital Sign Reading Time Taken Comments Blood Pressure 149/94 11/10/2024 5:25 PM CDT Pulse 87 11/10/2024 5:30 PM CDT Temperature 37.1 C (98.7 F) 11/10/2024 10:42 AM CDT Respiratory Rate 26 11/10/2024 3:15 PM CDT Oxygen Saturation 97% 11/10/2024 5:30 PM CDT Inhaled Oxygen Concentration - - Weight 120.2 kg (265 lb) 11/10/2024 10:42 AM CDT Height 172.7 cm (5' 8) 11/10/2024 10:42 AM CDT Body Mass Index 40.29 11/10/2024 10:42 AM CDT Plan of Treatment Health Maintenance Due Date Last Done Comments Hepatitis C Virus (HCV) Screening 1963 Pneumococcal Immunization (5 0+ years) (1 of 2 - PCV) 1982 Pap Smear 1984 Cervical Cancer Screening (CCS) 1993 HPV/Cotest 1993 Cologuard 2008 Colonoscopy 2008 Colorectal Cancer Screening 2008 Immunochemical Fecal Occult Blood 2008 Zoster Immunization (1 of 2) 2013 Hepatitis B Immunization (3 of 3 - 19+ 3-dose series) 12/03/2013 10/08/2013, 04/22/2012 Respiratory Syncytial Virus (RSV) Immunization (Adult) (1 - Risk 60-74 years 1-dose series) 2023 Influenza Immunization (#1) 2025 10/0 08/2022, 05/26/2022, 05/26/2021 SARS-COV-2 Immunization (3 - season) 2025 10/26/2020, 09/27/2020 Mammogram 07/18/2025 07/18/2024, 03/11/2021 DTaP/Tdap/Td Immunization Discontinued 04/22/2012 TdaP Immunization Completed 04/22/2012 Human Papillomavirus (HPV) Immunization Aged Out No longer eligible based on patient's age to complete this topic Meningococcal Immunization (ACWY) Aged Out No longer eligible based on patient's age to complete this topic Rotavirus Immunization Aged Out No lo nger eligible based on patient's age to complete this topic Insurance [employer] Care Teams Lube Man Relationship Specialty Start Date End Date Dalton Broderick MD [address] [place] [address] PCP - General Family Medicine 11/10/24
--- OUTSIDE RECORDS SUMMARY | 2025-05-25 13:03 | XMS_ITS | Encounter Summary ---
Author Organization [facility] Healthcare Address [address] [place] [address] Care Team Providers Care Assisted Living Assistant Name Role Phone Dalton Broderick MD Primary Care Provider [phone] Thony Ochoa MD Unavailable [phone] Encounter Details Date Type Department Care Team (Late st Contact Info) Description 05/06/2025 Results [facility]Up [facility] [address] [address] Dalton Broderick MD [address] [place] [address] Albumin Creatinine Ratio, Urine, Hemoglobin A1c, Comprehensive metabolic panel, Additional followed-up results: 4 Social History Tobacco Use Types Packs/Day Years Used Date Smoking Tobacco: Former Cigarettes Q uit: 08/12/2014 Smokeless Tobacco: Never Alcohol Use Standard Drinks/Week Comments Yes 0 [...] on file 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
== END 2025-05-25 12:54 | disposition home or self-care (01) ==
PROVIDERS: PCP Hospitalist; Visit Provider Urology
DX: N20.0 Calculus of kidney (principal)
CPT/HCPCS: 74018